=== PATIENT | male | born 1930 | race Caucasian/White ===

== ENCOUNTER → 2016-03-09 | Outpatient (CLI) | payer OTHER ==
[~2016-03-09] MED LIST: ACET-1256 PO; ALENDRONATE PO; AMLO-114 PO; ASPEC81 PO; ASPI81TA28 PO; ATOR-24 PO; CALC12502 PO; CHOL1CAP51 PO; FLUT0.15 NAE; FRS/40 PO; FURO-85 PO; LISI40TA PO; LNX125 PO; LPR25 PO; LSN5 PO; LSX20 PO; METO25TA3 PO; MULT-513 PO; RIVAROXABAN PO; SPR25 PO; TPRSR25 PO; WARF6TAB5 PO; XRL15 PO; [UNRECOGNIZED DRUG - CODE]
[2016-03-09 12:28] LABS: HEMATOCRIT 45.2 % (42-52); MEAN CELL VOLUME 90.6 fL (80-100); MEAN CORPUSCULAR HEMOGLOBIN 30.9 pg (25-34); MEAN CORPUSCULAR HGB CONC 34.1 g/dl (32-36); MEAN PLATELET VOLUME 11.3 fL (7.4-10.4); PLATELET COUNT 187 K/uL (130-400); RED BLOOD COUNT 4.99 M/uL (4.7-6.1); WHITE BLOOD COUNT 10.27 K/uL (4.8-10.8)
[2016-03-09 12:42] LABS: ALT/SGPT 30 U/L (12-78); BLOOD UREA NITROGEN 17 mg/dl (7-18); BUN/CREATININE RATIO 15.5 (10-20); CARBON DIOXIDE 26 mmol/L (21-32); CHLORIDE 110 mmol/L (98-107); CHOLESTEROL 178 mg/dl (0-200); GLUCOSE 80 mg/dl (70-99); POTASSIUM 4.1 mmol/L (3.5-5.1); SODIUM 145 mmol/L (136-145); TRIGLYCERIDES 202 mg/dl (0-150); VERY LOW DENSITY LIPOPROT CALC 40 mg/dl
[2016-03-09 12:52] LABS: ALKALINE PHOSPHATASE 88 U/L (45-117); AST/SGOT 28 U/L (15-37); CHOLESTEROL/HDL RATIO 5.6; HDL CHOLESTEROL 32 mg/dl; LDL CHOLESTEROL CALCULATED 106 mg/dl
== END | disposition home or self-care (01) ==
LOC: C.LABBFT 09:36
PROVIDERS: ATTEND Internal Medicine
DX: I10 Essential (primary) hypertension (principal); E55.9 Vitamin D deficiency, unspecified

== ENCOUNTER → 2016-03-11 | Outpatient (CLI) | payer OTHER ==
--- NOTE | 2016-03-11 12:12 | DIAGNOSTIC IMAGING REPORT ---
CHEST 2 VIEWS ROUTINE CLINICAL HISTORY: Cough, vitamin D deficiency. COMPARISON STUDY: No previous studies for comparison. FINDINGS: The heart is borderline enlarged. There is no failure. There is no focal pulmonary consolidation. There are no pleural effusions.[ IMPRESSION: No active disease in the chest. Electronically signed by: Yovany Mathews M.D. 03/11/2016 12:11 PM Dictated Date/Time: 03/11/2016 12:10 PM
== END | disposition home or self-care (01) ==
LOC: C.RAD1850 11:55
PROVIDERS: ATTEND Internal Medicine
DX: E55.9 Vitamin D deficiency, unspecified (principal); R05 Cough

== ENCOUNTER 2016-06-22 17:18 | Inpatient (IN) | payer OTHER ==
[~2016-06-22] VITALS: Ht 167.6 cm; Wt 71.0 kg
[~2016-06-22 17:18] MED LIST changes: -ACET-1256 PO; -ASPEC81 PO; -ASPI81TA28 PO; -ATOR-24 PO; -FLUT0.15 NAE; -FRS/40 PO; -FURO-85 PO; -LNX125 PO; -LPR25 PO; -LSN5 PO; -LSX20 PO; -METO25TA3 PO; -MULT-513 PO; -RIVAROXABAN PO; -SPR25 PO; -TPRSR25 PO; -WARF6TAB5 PO; -XRL15 PO; -[UNRECOGNIZED DRUG - CODE]
[2016-06-22 18:08] LABS: BASO % 0.3 %; BASO ABS # 0.03 K/uL (0-0.2); COMPLETE YES; EOS % 1.5 %; HEMATOCRIT 38.2 % (42-52); IG% 0.3 %; LYMPH % 27.6 %; LYMPH ABS # 2.72 K/uL (1.2-3.4); MEAN CELL VOLUME 91.4 fL (80-100); MEAN CORPUSCULAR HEMOGLOBIN 31.1 pg (25-34); MEAN PLATELET VOLUME 10.6 fL (7.4-10.4); NEUT % 60.3 %; PLATELET COUNT 171 K/uL (130-400); RED BLOOD COUNT 4.18 M/uL (4.7-6.1); WHITE BLOOD COUNT 9.86 K/uL (4.8-10.8)
[2016-06-22 18:22] LABS: BUN/CREATININE RATIO 26.8 (10-20); CALCIUM 8.3 mg/dl (8.5-10.1); CREATININE 1.6 mg/dl (0.60-1.40); POTASSIUM 4.3 mmol/L (3.5-5.1)
--- NOTE | 2016-06-22 18:39 | DIAGNOSTIC IMAGING REPORT ---
TWO VIEW CHEST CLINICAL HISTORY: Cough. Lower extremity edema. FINDINGS: PA and lateral chest radiographs are compared to study dated 03/11/16. The heart is enlarged and there is atherosclerotic calcification of the thoracic aorta. The pulmonary vasculature is noncongested. There are small pleural effusions with bibasilar atelectasis. The upper lobes are clear. There is no pneumothorax. The skeletal structures are osteopenic. Degenerative change is noted in the thoracic spine and shoulders. IMPRESSION: 1. Cardiomegaly without radiographic evidence of congestive failure. 2. Small pleural effusions and bibasilar atelectasis. Electronically signed by: Oh Mcdonald M.D. 06/22/2016 6:37 PM Dictated Date/Time: 06/22/2016 6:36 PM
[2016-06-22 18:47] LABS: ALB/GLOB RATIO 0.7 (0.9-2); CKMB/CK RATIO 3.9 (0-3.0); THYROID STIMULATING HORMONE 1.88 uIu/ml (0.300-4.500)
--- NOTE | 2016-06-22 19:33 | EMERGENCY ROOM VISIT NOTE ---
History Report prepared by Kajal: Celeste Bentley Under the Supervision of: Dr. Harmony Fry D.O. First contact with patient: 17:41 Chief Complaint: HYPOTENSION Stated Complaint: SWELLING FEET, LOW BP History of Present Illness The patient is a 85 year old male who presents to the Emergency Room with complaints of persistent hypotension that started a couple months ago. The patient's states that she took the patient's blood pressure today and it was really low, [facility]. He is also experiencing a persistent cough, which the patient's states he has had since the beginning of the year. She states that the coughing is worse at night and it was significantly worse last night. The patient's also states that the patient has less energy than usual. He is also experiencing bilateral lower extremity edema. The patient's states that the patient was evaluated by his PCP about one month ago for his current symptoms. His PCP recommended lowering the dose of his Lisinopril since it could cause the patient's cough and edema, but he did not change the patient's dose. The patient's PCP gave the patient allergy medication which seemed to improve the patient's cough, but his cough came back after a couple weeks. The patient's symptoms continued so [facility] they [facility] his Lisinopril from 40 mg to 20 mg. They also started him on 20 mg of Lasix. The patient's edema persisted so his called the [facility] and they recommended raising the patient's Lasix from 20 mg to 40 mg. His edema still has not resolved. The patient also had an echocardiogram done about 3 weeks ago , but they state that they were never given the results. She also expresses concern that the patient's symptoms are a result of overexertion since they started after strenuous activity several months ago. The patient's states that the patient does not have any history of an irregular heartbeat. Source of History: patient, spouse/significant other () Onset: a couple months ago Position: other (global) Quality: other (hypotension) Timing: other (persistent) Associated Symptoms: + cough (persistent, worse at night) Note: less energy than usual, bilateral lower extremity edema Review of Systems See HPI for pertinent positives & negatives. A total of 10 systems reviewed and were otherwise negative. Past Medical & Surgical Medical Problems: (1) Diabetes (2) Kidney stones Family History Diabetes mellitus Hypertension Kidney disease Kidney stones Social History Smoking Status: Former Smoker Smokeless Tobacco Use: No Alcohol Use: none Drug Use: none Marital Status: Housing Status: lives with family Current/Historical Medications Scheduled Amlodipine (Norvasc), 10 MG PO QAM Calcium Carbonate (Os-Ajith 500), 500 MG PO DAILY Cholecalciferol (Vitamin D3 High Potency), 2 CAPSULES PO DAILY Lisinopril (Zestril), 40 MG PO QAM [Alendronate], 70 MG PO WK Allergies Coded Allergies: No Known Allergies (Unverified , 05/18/12) Physical Exam Vital Signs Date Time Temp Pulse Resp B/P Pulse Ox O2 Delivery O2 Flow Rate FiO2 06/22/16 18:56 94 Nasal Cannula 2.0 06/22/16 18:54 78 20 102/48 88 Room Air 06/22/16 18:19 77 06/22/16 17:23 37.0 83 20 97/59 94 Room Air Physical Exam HEENT: Head - normocephalic and atraumatic Pupils are equal, round, and reactive to light. Extraocular eye muscles are intact, and sclera are anicteric. Nose - moist nasal mucosa without discharge. Mouth - moist buccal mucosa. Oropharynx is nonerythematous and there is no tonsillar exudate or edema noted. Neck: Supple; no JVD, nuchal rigidity, cervical lymphadenopathy, or auscultated bruits. Heart: Irregularly irregular rhythm. There is a normal S1 and S2 with no murmurs, clicks, or gallops appreciated. Lungs: Diminished breath sounds in all lung martinez. Abdomen: Soft, completely nontender, nondistended, with good bowel sounds. There are no palpable pulsatile masses or hepatosplenomegaly. There is no guarding, rigidity, or rebound noted. Extremities: 2+ edema in legs bilaterally. No evidence of cyanosis or clubbing. There are easily palpable peripheral pulses. Skin: warm and dry with good turgor and no rashes. Medical Decision & Procedures ER Provider Diagnostic Interpretation: X-ray results as stated below per interpretation by me and the radiologist: TWO VIEW CHEST IMPRESSION: 1. Cardiomegaly without radiographic evidence of congestive failure. 2. Small pleural effusions and bibasilar atelectasis. Electronically signed by: Oh Mcdonald M.D. 06/22/2016 6:37 PM Dictated Date/Time: 06/22/2016 6:36 PM Laboratory Results Test 06/22/16 17:41 Total Bilirubin 0.6 mg/dl (0.2-1) Aspartate Amino Transf (AST/SGOT) 35 U/L (15-37) Alanine Aminotransferase (ALT/SGPT) 47 U/L (12-78) Alkaline Phosphatase 96 U/L (45-117) Pro-B-Type Natriuretic Peptide 8677 pg/ml (0-1800) Total Protein 6.7 gm/dl (6.4-8.2) Albumin 2.8 gm/dl (3.4-5.0) Globulin 3.9 gm/dl (2.5-4.0) Albumin/Globulin Ratio 0.7 (0.9-2) Thyroid Stimulating Hormone (TSH) 1.880 uIu/ml (0.300-4.500) Laboratory results per my review. Medications Administered Medications (Trade) Dose Ordered Sig/Erica Route Start Time Stop Time Status Last Admin Dose Admin Heparin Sodium/ Dextrose 1 ea NOW STAT N/A 06/22/16 19:20 06/22/16 19:21 DC 06/22/16 19:20 1 EA Heparin Sodium/ Dextrose (Heparin 25,000 Unit/500ml D5W) 25,000 unit STK-MED ONCE .ROUTE 06/22/16 19:52 06/22/16 19:53 DC 06/22/16 20:07 25,000 UNIT Procedure IV heparin drip ECG Indication: other (irregular heartbeat) Rate (beats per minute): 80 Rhythm: atrial fibrillation Findings: no acute ischemic change, no ectopy Comparison ECG Date: 05/11/2012 Change: Atrial fibrillation has replaced normal sinus rhythm, old inferior infarct is not present ED Course 1744: Past medical records reviewed. The patient was evaluated in room C12. A complete history and physical exam was performed. The patient had an IV lock initiated and labs are drones above. A twelve-lead EKG was obtained as described above. 1756: The patient's echocardiogram from 06/08/2016 was obtained. The results of the echocardiogram were: normal left ventricular size with mildly reduced systolic function, EF 40-50%, mild global hypokinesis, moderate concentric left ventricular hypertrophy, type 2 diastolic dysfunction, normal right ventricular size with mildly reduced systolic function, sclerotic aortic valve without significant stenosis, mild aortic regurgitation, mildly elevated right ventricular systolic pressure estimated RVSP 43 mmHg, and no prior study available for comparison. The patient had a chest x-ray as described above. 1914: Upon reevaluation, the patient is resting comfortably. I discussed findings and results with the patient and his . They verbalized agreement of the treatment plan. The patient will be evaluated for further management and care. 1917: Discussed the patient's case with Dr. Rosette Tsang Resident. The patient will be evaluated for further management. Medical Decision The patient is a 85 year old male who presents to the Emergency Room with complaints of persistent hypotension that started a couple months ago. Differential diagnosis includes veena inhibitor induced cough, hypotension secondary to overmedication, congestive heart failure, allergies, cardiac ischemia, cardiac dysrhythmia, or pneumonia. Lab Interpretation: Normal white count Mildly anemic with a hemoglobin of 13 BUN 43 Creatinine 1.6 Normal glucose and LFTs Troponin 0.050 Normal TSH BNP 8.677 This is an 85-year-old male patient who was brought to the emergency department today by his family because he was weak and hypotensive. The patient has persistent lower extremity edema. He was noted to be in A. fib on physical exam. Twelve-lead EKG confirmed that. Chest x-ray had small bilateral pleural effusions. The patient's troponin was elevated. He also has some mild acute kidney injury. Patient's vital signs remained stable and he was able to mentate normally. I discussed the case with Dr. Miguel he will violate the patient for further management. Consults Time Called: 1912 Consulting Physician: Dr. Rosette Tsang Resident Returned Call: 1917 Discussed the patient's case with Dr. Rosette Tsang Resident. The patient will be evaluated for further management. Impression Primary Impression: New onset atrial fibrillation Additional Impressions: Acute kidney injury Elevated troponin Scribe Attestation The scribe's documentation has been prepared under my direction and personally reviewed by me in its entirety. I confirm that the note above accurately reflects all work, treatment, procedures, and medical decision making performed by me. Departure Information Dispostion Being Evaluated By Hospitalist Referrals Lexus, Marcus,M.D. (PCP) Patient Instructions [facility] Problem Qualifiers
[2016-06-22] MEDS ORDERED: HEPARIN 25000 UNIT/500 ML D5W ONE (19:52)
[2016-06-22 20:00] VITALS: O2SAT 92
[2016-06-22] MEDS ORDERED: NITROGLYCERIN 0.4 MG SL PER TAB CHARGE SL PRN (20:00)
[2016-06-22] MEDS ORDERED: ACETAMINOPHEN 325 MG TAB PO PRN (20:00)
[2016-06-22 20:14] LABS: INR 1.1 (0.9-1.1); PROTHROMBIN TIME (PATIENT) 11.8 SECONDS (9.0-12.0)
[2016-06-22] MEDS ORDERED: ONDANSETRON INJ 2 MG/ML 2 ML VIAL IV PRN (20:15)
[2016-06-22 21:15] VITALS: BP 123/58; PULSE 84; TEMP 36.9; O2SAT 92; Ht 167.6 cm; Wt 71.0 kg
--- NOTE | 2016-06-22 23:38 | History and Physical ---
History & Physical Date & Time of Service: June 22, 2016 at 23:38 Chief Complaint: Elevated Troponin, New Onset Atrial Fibrillation Primary Care Physician: Marcus Alberts M.D. History of Present Illness Source: patient, spouse The patient is a 85-year-old male who presents emergency department with lower extremity edema since February, progressive fatigue and a measured low blood pressure earlier in the day prior to arrival. He has also had a persistent cough, that his PCP thought was related to his lisinopril, and he also reports that his lower extremity edema was thought related to one of his medications ( likely amlodipine), and was put on increasing doses of Lasix from 20-40 mg. He did have an echocardiogram done 3 weeks ago at [facility], but they had not gotten the results yet. His does report that she's had take over more of his duties around the house, as he is unable to do a number of physical activities due to generalized weakness. He denies chest pain, but does have intermittent dyspnea on exertion. Past Medical/Surgical History Medical Problems: (1) Diabetes Status: Chronic (2) Kidney stones Status: Resolved Family History Diabetes mellitus Hypertension Kidney disease Kidney stones Social History Smoking Status: Never Smoker Smokeless Tobacco Use: No Alcohol Use: none Drug Use: none Marital Status: Housing status: lives with family Immunizations History of Influenza Vaccine: N/A History of Tetanus Vaccine?: Unknown History of Pneumococcal: Unknown History of Hepatitis B Vaccine: Unknown Multi-Drug Resistant Organisms History of MDRO: No Allergies Coded Allergies: No Known Allergies (Unverified , 05/18/12) Home Medications Scheduled Amlodipine (Norvasc), 10 MG PO QAM Calcium Carbonate (Os-Ajith 500), 500 MG PO DAILY Cholecalciferol (Vitamin D3 High Potency), 2 CAPSULES PO DAILY Lisinopril (Zestril), 40 MG PO QAM [Alendronate], 70 MG PO WK Review of Systems The patient denies chest pain, palpitations, vision change, hearing change, sore throat, fevers, chills, sweats, nausea, vomiting, abdominal pain, pelvic pain, blood in urine or stool, dysuria, urinary frequency or urgency, lightheadedness, dizziness, headache, memory loss, rash, abnormal bruising or bleeding, imbalance, focal weakness, numbness or tingling in arms or legs, arthralgias or myalgias, back or neck pain, night sweats, or allergy symptoms. The review of systems is otherwise negative other than for that already noted above, and at least 10 systems have been reviewed. Physical Exam Vital Signs Date Time Temp Pulse Resp B/P Pulse Ox O2 Delivery O2 Flow Rate FiO2 06/22/16 21:15 36.9 84 18 123/58 92 Nasal Cannula 2.0 06/22/16 20:37 77 18 110/62 92 Nasal Cannula 2.0 06/22/16 20:00 92 Nasal Cannula 2.0 06/22/16 18:56 94 Nasal Cannula 2.0 06/22/16 18:54 78 20 102/48 88 Room Air 06/22/16 18:19 77 06/22/16 17:23 37.0 83 20 97/59 94 Room Air The patient is awake, well-developed and adequately nourished, alert and oriented 3, normocephalic and atraumatic, lying in bed and in no acute distress. HEENT--PERRL, EOMI, mucous membranes and oropharynx dry. Neck--supple, no JVD or bruits, thyroid normal, trachea midline, no adenopathy. Heart--irregularly irregular, with occasional extra beats. No murmurs, rubs or gallops. Lungs--few crackles at the bases bilaterally, no respiratory distress, no accessory muscle use. Abdomen--normal bowel sounds and soft, nontender and nondistended, no hernias or masses, no organomegaly. Extremities--no cyanosis, clubbing. There is 3+ pretibial bilateral pitting Edema. There are good distal pulses b/l. Dermatologic--normal skin turgor, normal color, warm and dry, no abnormal lymph nodes, no rash. Neurologic--cranial nerves II through XII grossly intact, motor and sensory examination normal. Rheumatologic--normal range of motion, nontender, muscles and joints. Psychiatric--normal affect. Diagnostics Laboratory Results Results Past 24 Hours Test 06/22/16 17:41 06/22/16 20:15 Range/Units White Blood Count 9.86 4.8-10.8 K/uL Red Blood Count 4.18 4.7-6.1 M/uL Hemoglobin 13.0 14.0-18.0 g/dL Hematocrit 38.2 42-52 % Mean Corpuscular Volume 91.4 80-100 fL Mean Corpuscular Hemoglobin 31.1 25-34 pg Mean Corpuscular Hemoglobin Concent 34.0 32-36 g/dl Platelet Count 171 130-400 K/uL Mean Platelet Volume 10.6 7.4-10.4 fL Neutrophils (%) (Auto) 60.3 % Lymphocytes (%) (Auto) 27.6 % Monocytes (%) (Auto) 10.0 % Eosinophils (%) (Auto) 1.5 % Basophils (%) (Auto) 0.3 % Neutrophils # (Auto) 5.94 1.4-6.5 K/uL Lymphocytes # (Auto) 2.72 1.2-3.4 K/uL Monocytes # (Auto) 0.99 0.11-0.59 K/uL Eosinophils # (Auto) 0.15 0-0.5 K/uL Basophils # (Auto) 0.03 0-0.2 K/uL RDW Standard Deviation 44.9 36.4-46.3 fL RDW Coefficient of Variation 13.6 11.5-14.5 % Immature Granulocyte % (Auto) 0.3 % Immature Granulocyte # (Auto) 0.03 0.00-0.02 K/uL Prothrombin Time 11.8 9.0-12.0 SECONDS Prothromb Time International Ratio 1.1 0.9-1.1 Activated Partial Thromboplast Time 25.9 21.0-31.0 SECONDS Partial Thromboplastin Ratio 1.0 Sodium Level 139 136-145 mmol/L Potassium Level 4.3 3.5-5.1 mmol/L Chloride Level 106 98-107 mmol/L Carbon Dioxide Level 25 21-32 mmol/L Anion Gap 8.0 3-11 mmol/L Blood Urea Nitrogen 43 7-18 mg/dl Creatinine 1.60 0.60-1.40 mg/dl Est Creatinine Clear Calc Drug Dose 30.4 ml/min Estimated GFR () 44.9 Estimated GFR (Non- 38.7 BUN/Creatinine Ratio 26.8 10-20 Random Glucose 117 70-99 mg/dl Calcium Level 8.3 8.5-10.1 mg/dl Total Bilirubin 0.6 0.2-1 mg/dl Aspartate Amino Transf (AST/SGOT) 35 15-37 U/L Alanine Aminotransferase (ALT/SGPT) 47 12-78 U/L Alkaline Phosphatase 96 45-117 U/L Total Creatine Kinase 106 91 39-308 U/L Creatine Kinase MB 4.1 3.6 0.5-3.6 ng/ml Creatine Kinase MB Ratio 3.9 4.0 0-3.0 Troponin I 0.050 0.050 0-0.045 ng/ml Pro-B-Type Natriuretic Peptide 8677 0-1800 pg/ml Total Protein 6.7 6.4-8.2 gm/dl Albumin 2.8 3.4-5.0 gm/dl Globulin 3.9 2.5-4.0 gm/dl Albumin/Globulin Ratio 0.7 0.9-2 Thyroid Stimulating Hormone (TSH) 1.880 0.300-4.500 uIu/ml Diagnostic Radiology Patient Name: AJIT BERMAN Unit Number: [id number] Dictated: 06/22/161835 Transcribed: 06/22/161835 EV Printed Date/Time: [~ rep prt dt]/[~ rep prt tm] [~ rep ct labl] - [~ rep ct ivnm] [facility] [place] [address] Dictated: 06/22/161835 Transcribed: 06/22/161835 EV Printed Date/Time: [~ rep prt dt]/[~ rep prt tm] [~ rep ct labl] - [~ rep ct ivnm] [~ rep ct add3]] TWO VIEW CHEST CLINICAL HISTORY: Cough. Lower extremity edema. FINDINGS: PA and lateral chest radiographs are compared to study dated 03/11/16. The heart is enlarged and there is atherosclerotic calcification of the thoracic aorta. The pulmonary vasculature is noncongested. There are small pleural effusions with bibasilar atelectasis. The upper lobes are clear. There is no pneumothorax. The skeletal structures are osteopenic. Degenerative change is noted in the thoracic spine and shoulders. IMPRESSION: 1. Cardiomegaly without radiographic evidence of congestive failure. 2. Small pleural effusions and bibasilar atelectasis. Electronically signed by: Oh Mcdonald M.D. 06/22/2016 6:37 PM Dictated Date/Time: 06/22/2016 6:36 PM The status of this report is Signed. Draft = Not yet reviewed or approved by Radiologist. Signed = Reviewed and approved by Radiologist. <AttendingPhy></AttendingPhy> <FamilyPhy>Marcus Alberts M.D.</FamilyPhy> < PrimaryPhy>Marcus Alberts M.D.</PrimaryPhy> <UnitNumber>[id number]</UnitNumber > <VisitNumber>[id number]</VisitNumber> <PatientName>AJIT BERMAN N</ PatientName> <DateOfBirth>1930</DateOfBirth> <Location>[facility]</Location> < ServiceDate>06/22/16</ServiceDate> <MNE>ESINDI</MNE> <OrderingPhy>Harmony Fry D.O.</OrderingPhy> <OrderingPhyMNE>f rep ord dr ames</OrderingPhyMNE> < DictatingPhyMNE>f rep dict dr ames</DictatingPhyMNE> <CCListMNE>f rep ct mne</ CCListMNE> <AdmittingPhyMNE>f pt admit dr ames</AdmittingPhyMNE> <AttendingPhyMNE >f pt attend dr ames</AttendingPhyMNE> <ConsultingPhyMNE>f pt consult dr ames</ConsultingPhyMNE> <FamilyPhyMNE>f pt fam dr ames</FamilyPhyMNE> <OtherPhyMNE>f pt other dr ames</OtherPhyMNE> < PrimaryPhyMNE>f pt prim care dr ames</PrimaryPhyMNE> <ReferringPhyMNE>f pt referring dr ames</ReferringPhyMNE> EKG EKG shows atrial fibrillation at 80 bpm, in no acute ST-T changes. Impression Assessment and Plan New-onset atrial fibrillation/elevated troponin/fluid overload/systolic heart dysfunction/mildly elevated troponin was 0.050--the patient will be admitted to the telemetry for serial cardiac enzymes, cardiac rhythm monitoring, and a cardiology consult. His echocardiogram done from 3 weeks ago shows ejection fraction 45-50%, with mild aortic regurgitation. He is being started on heparin IV standard dose per weight-based protocol without bolus. His blood pressures is too low at this time to give IV Lasix, but may be able to give albumin with Lasix later on. Will hold amlodipine 10 mg by mouth every morning , this is likely contributing to or is the cause of significant lower extremity edema. Continue lisinopril 40 mg by mouth every morning. Renal insufficiency--creatinine and his 1.60. We'll decrease lisinopril from 40 -20 mg by mouth daily. Repeat BMP and magnesium levels in the a.m. Anemia--unknown etiology at this time. We'll check iron, B12 , folic acid, reticulocyte count. Heme test stools. Osteoporosis--he is on alendronate weekly in the outpatient setting. We'll continue calcium and vitamin D as inpatient. Level of Care Telemetry Advanced Directives Existing Advance Directive: No Existing Living Will: No Existing Power of Ship/Rec/Doc Control: No Resuscitation Status FULL RESUSCITATION VTE Prophylaxis VTE Risk Assessment Done? Y/N: Yes Risk Level: Moderate Given or contraindicated: Other Anticoagulation (IV heparin per standard dose weightbase protocol without bolus.)
[2016-06-22 23:51] LABS: URINE APPEARANCE CLEAR (CLEAR); URINE BILIRUBIN NEG (NEG); URINE COLOR YELLOW; URINE NITRITE NEG (NEG); URINE SPECIFIC GRAVITY 1.019 (1.000-1.030); UROBILINOGEN NEG (NEG)
[2016-06-22 23:54] LABS: MANUAL MICROSCOPIC REQUIRED? NO; REVIEW REQ? NO
[2016-06-22 23:56] VITALS: BP 106/58; PULSE 80; TEMP 36.9; O2SAT 94
[2016-06-23 02:17] LABS: PARTIAL THROMBOPLASTIN RATIO 1.4
[2016-06-23] MEDS ORDERED: HEPARIN IV BOLUS 5,000 UNIT in SYRINGE 0 ML IV STA (02:32)
[2016-06-23] MEDS: HEPARIN 25,000 UNIT/500ML D5W 500 ML IV PRN ×2 (02:41→14:11)
[2016-06-23 03:51] VITALS: BP 102/58; PULSE 76; TEMP 36.8; O2SAT 93
[2016-06-23 04:37] LABS: BASO % 0.5 %; BASO ABS # 0.04 K/uL (0-0.2); COMPLETE YES; EOS % 2.4 %; HEMATOCRIT 37.3 % (42-52); IG% 0.2 %; LYMPH % 27.1 %; MEAN CELL VOLUME 91.6 fL (80-100); MEAN CORPUSCULAR HEMOGLOBIN 30.2 pg (25-34); MEAN PLATELET VOLUME 10.7 fL (7.4-10.4); MONO % 11.3 %; NEUT % 58.5 %; PLATELET COUNT 154 K/uL (130-400); RED BLOOD COUNT 4.07 M/uL (4.7-6.1); WHITE BLOOD COUNT 8.85 K/uL (4.8-10.8)
[2016-06-23 04:57] LABS: BUN/CREATININE RATIO 27.9 (10-20); CALCIUM 7.9 mg/dl (8.5-10.1); CREATININE 1.3 mg/dl (0.60-1.40); MAGNESIUM 2.3 mg/dl (1.8-2.4); POTASSIUM 4.1 mmol/L (3.5-5.1)
[2016-06-23 05:01] LABS: INR 1.1 (0.9-1.1); PARTIAL THROMBOPLASTIN RATIO 3.7; PROTHROMBIN TIME (PATIENT) 12.2 SECONDS (9.0-12.0)
[2016-06-23 05:07] LABS: CKMB/CK RATIO 4.4 (0-3.0)
[2016-06-23 07:48] VITALS: BP 104/53; PULSE 71; TEMP 36.7; O2SAT 94
[2016-06-23] MEDS: CHOLECALCIFEROL 1000 INTER.UNIT TAB PO SCH (08:21)
[2016-06-23] MEDS: LISINOPRIL 5 MG TAB PO SCH (08:22)
[2016-06-23] MEDS ORDERED: LISINOPRIL 20 MG TAB PO SCH (09:00)
[2016-06-23] MEDS ORDERED: LISINOPRIL 40 MG TAB PO SCH (09:00)
[2016-06-23 09:12] LABS: PARTIAL THROMBOPLASTIN RATIO 2.2
[2016-06-23] MEDS ORDERED: FUROSEMIDE INJ 60 MG in SYRINGE 0 ML IV ONE (10:00)
[2016-06-23] MEDS ORDERED: METOPROLOL SUCC 25MG EXT REL TAB PO ONE (10:00)
[2016-06-23] MEDS ORDERED: ASPIRIN 81 MG ECTAB PO ONE (10:00)
--- NOTE | 2016-06-23 10:12 | Clinical Documentation Query ---
DENIZ Bethea : CLINICAL DOCUMENTATION QUERIES QUERY 1 OF 2 Patient is an 85 year old male admitted for evaluation and treatment of new onset atrial fibrillation, "fluid overload", and "renal insufficiency". H&P notes systolic heart dysfunction, noting an LVEF of 45-50% on recent echo. Type 2 diastolic dysfunction noted. Cardiology consultation pending. He has been treated with IV Lasix, Toprol XL, and Lisinopril. As appropriate, consider clarification as suggested below as this impacts DRG assignment. Thank you. In your clinical opinion is this patient being managed for: (xx ) Acute combined systolic and diastolic congestive heart failure ( ) Other explanation of clinical findings (Please Explain) ( ) Unable to determine (Please Define) ( ) Need to Discuss ( ) Not Agree The medical record reflects the following clinical findings, treatment, and risk factors. Clinical Indicators: As above Treatment: serial cardiac enzymes, cardiac rhythm monitoring, and a cardiology consult, telemetry, I/O, daily weights Risk Factors: Age, atrial fibrillation, hypertension QUERY 2 OF 2 Documentation includes "renal insufficiency". This necessarily assigns a code for an "unspecified disorder of the kidney and/or ureter". As appropriate, consider documentation as suggested below in order to capture the severity of illness and risk of mortality associated with this clinical diagnosis. Thank you. In your clinical opinion is this patient being managed for: ( xx ) Acute kidney failure ( ) Other explanation of clinical findings (Please Explain) ( ) Unable to determine (Please Define) ( ) Need to Discuss ( ) Not Agree The medical record reflects the following clinical findings, treatment, and risk factors. Clinical Indicators: BUN and creatinine 43 mg/dl and 1.60 mg/dl. No documented CKD history Treatment: Decreased Lisinopril, serial chemistries Risk Factors: Age, possibly acute on chronic combined systolic and diastolic CHF, medications Please clarify and document your clinical opinion in the progress notes and discharge summary. Terms such as "probable", "suspected", "likely", "questionable", "possible", or "still to be ruled out" are acceptable. IF IN AGREEMENT, YOU MUST DOCUMENT ABOVE DIAGNOSTIC STATEMENT IN DAILY PROGRESS NOTES AND DISCHARGE SUMMARY. This document is not part of the patient's record. Thank You, Edvin Dale, RN [phone]
[2016-06-23 11:43] VITALS: BP 110/50; PULSE 79; TEMP 36.8; O2SAT 96
--- NOTE | 2016-06-23 12:58 | CARDIOLOGY CONSULTATION REPORT ---
DATE OF CONSULTATION: 06/23/2016 REASON FOR CONSULTATION: 1. New onset rate controlled Atrial Fibrillation. 2. Chronic Combined Systolic and Diastolic CHF. 3. Elevated Troponin I without a history of angina pectoris. HISTORY OF PRESENT ILLNESS: Mr. Aburto is a very pleasant 85-year-old white male with a history of longstanding Hypertension, CKD, Nephrolithiasis, history of Hyperparathyroidism, and Type 2 Diabetes Mellitus, who was admitted yesterday with newly diagnosed rate controlled Atrial Fibrillation and progressive dyspnea, dyspnea on exertion, and leg edema over the past 5-6 months. The patient states that around the beginning of the year, he began to note bilateral leg edema. This progressed over the ensuing months and he also developed exertional dyspnea, shortness of breath at rest, orthopnea, PND, and poor appetite. Because of these ongoing symptoms, he presented to the emergency room yesterday. Thus far, his workup shows rate controlled atrial fibrillation with ventricular rates in the 70s, small bilateral pleural effusions, elevated Pro-BNP, and mildly elevated troponin I level with unremarkable CK and CK-MB levels. His EKG shows no acute changes. Because of these symptoms, the patient underwent an echocardiogram on 06/08/2016. This showed normal LV size and mildly reduced LV systolic function, LVEF 45%-50% with mild global hypokinesis, moderate concentric LVH with type 2 diastolic dysfunction, normal RV size with mildly reduced RV systolic function, aortic valve sclerosis/stenosis, mild AI, and mildly elevated right ventricular systolic pressure of 43 mmHg. The patient offers no other complaints. He denies any history of exertional chest pain, heaviness, tightness, pressure, or discomfort. He denies any history of exertional neck, jaw, back, or arm pain. He has not had any palpitations, tachy palpitations, syncope, or near syncope. MEDICATIONS: 1. Lisinopril 5 mg daily. 2. Heparin drip. 3. Zofran 4 mg IV q. 6 hours p.r.n. 4. Tylenol p.r.n. 5. Sublingual nitroglycerin p.r.n. ALLERGIES: NKDA. PAST MEDICAL HISTORY: 1. Longstanding hypertension. 2. CKD. 3. History of nephrolithiasis and prior lithotripsy. 4. History of hyperparathyroidism. 5. History of osteoporosis. 6. History of parathyroidectomy. 7. History of leg edema. SOCIAL HISTORY: The patient is and lives with his . He is a lifelong nonsmoker. Does not use alcohol. Retired from work. FAMILY HISTORY: Significant for goiter, but there is no family history of heart disease. PHYSICAL EXAMINATION: VITAL SIGNS: Temperature is 36.7 degrees Celsius, pulse is 70-73 and irregularly irregular, respiratory rate is 16 and unlabored, blood pressure is 104/53 and SpO2 is 94% on 2 liters oxygen via nasal cannula. GENERAL: The patient is in no acute distress. He is lying in a semi-recumbent position comfortably. HEENT: Head is atraumatic and normocephalic. EOMs intact. Sclerae are anicteric. Face is symmetric. No perioral cyanosis. Mucous membranes moist. NECK: Without thyromegaly or adenopathy. Jugular venous pressure is elevated, approximately half way to the angle of the jaw, lying at a 20-degree angle. CHEST AND LUNGS: Mildly diminished breath sounds in bilateral bases, otherwise clear. No wheezes, rales or rhonchi. CARDIOVASCULAR: S1 and S2 are irregularly irregular at a rate of approximately 70-73 beats per minute. There is a grade 1/6 basal systolic murmur, which does not appear to radiate. No diastolic murmurs appreciated. No gallops or rubs. PMI is not displaced. No lifts, heaves, or thrills. No abdominal aortic or renal bruits. ABDOMEN: Bowel sounds are present. No masses, organomegaly, or tenderness. EXTREMITIES: Without clubbing or cyanosis. There is +1 pitting edema to the mid tibia bilaterally. Intact posterior tibial and radial pulses bilaterally. NEUROLOGIC: The patient is awake, alert and oriented. Pleasant and cooperative. Answers questions appropriately. Speech is clear. Normal movement in all 4 extremities. Gait pattern not assessed. Current monitoring analyst reveals rate controlled atrial fibrillation. Echocardiogram on 06/08/2016 shows the followin. LVEF 45%-50% with mild global hypokinesis. 2. Normal LV size with mildly reduced LV systolic function. 3. Moderate concentric LVH with type 2 diastolic dysfunction. 4. Normal RV size with mildly reduced RV systolic function. 5. Aortic valve sclerosis/stenosis. 6. Mild AI. 7. Mildly elevated RVSP of 43 mmHg. LABORATORY DATA: White blood cell count is 8.85. Hemoglobin is 12.3 g/dL, hematocrit 37.3%, and platelet count is 154,000. Sodium is 141 mmol/L, potassium 4.1 mmol/L, BUN 36 mg/dL with a creatinine of 1.30 mg/dL. Random glucose is 107 mg/dL. Serum magnesium is 2.3 mg/dL. Pro-BNP is elevated at 8677 pg/mL. Troponin I levels are 0.052, 0.050, and 0.050 ng/mL. Total CKs are 86, 91, and 106 units per liter with respective CK-MBs of 3.8, 3.6, and 4.1 ng/mL. TSH normal at 1.880 uIUs/mL. ASSESSMENT: 1. Chronic combined Systolic and Diastolic CHF. 2. Mild Cardiomyopathy. 3. Newly diagnosed rate controlled Atrial Fibrillation (not likely to be contributing to his current symptomatology). 4. Elevated CHADS-VASc score. 5. Elevated troponin I, of uncertain clinical significance in the absence of angina pectoris or appropriate trending of numbers. 6. Longstanding Hypertension. 7. Type 2 Diabetes Mellitus. 8. Chronic kidney disease. 9. Diagnoses mentioned above. PLAN: 1. I will discuss with Dr. Dominguez. 2. As the patient's ventricular response rate is exceedingly well controlled, this is unlikely to be contributing a large role in his current symptomatology. Would recommend discharging to home on Eliquis or Xarelto for thromboembolic prophylaxis associated with atrial fibrillation. 3. He continues to appear volume overloaded. We will recommend IV Lasix 60 mg x1 dose today. 4. Continue Lisinopril 5 mg daily. 5. We will add Metoprolol Succinate at a low dose today. 6. Closely monitor daily I&Os and body weights. 7. Maintain a low-sodium, heart-healthy diet. 8. Continue heparin drip for the time being for thromboembolic prophylaxis. 9. We will continue to follow along while hospitalized. ESMED
[2016-06-23 13:14] LABS: CKMB/CK RATIO 4.9 (0-3.0)
[2016-06-23 15:09] VITALS: BP 100/55; PULSE 75; TEMP 36.7; O2SAT 91
--- NOTE | 2016-06-23 16:38 | Progress Note ---
Subjective Date of Service: June 23, 2016. Subjective pt states he feels better but still is short of breath, no chest pain Problem List Medical Problems: (1) Acute kidney injury Status: Acute (2) Diabetes Status: Chronic (3) Elevated troponin Status: Acute (4) New onset atrial fibrillation Status: Acute Review of Systems Constitutional: + fatigue, + weakness, No chills, No fever Respiratory: + dyspnea on exertion, + shortness of breath, No cough, No dyspnea at rest, No sputum, No wheezing Cardiac: + edema, + orthopnea, No PND, No chest pain Abdomen: No diarrhea, No nausea, No pain, No vomiting Musculoskeletal: + swelling, No joint pain, No muscle pain Neurologic: No memory loss, No paralysis Objective Vital Signs Date Time Temp Pulse Resp B/P Pulse Ox O2 Delivery O2 Flow Rate FiO2 06/23/16 04:04 Nasal Cannula 2.0 06/23/16 03:51 36.8 76 18 102/58 93 Nasal Cannula 2.0 06/22/16 23:59 Nasal Cannula 2.0 06/22/16 23:56 36.9 80 19 106/58 94 Nasal Cannula 2.0 06/22/16 21:15 36.9 84 18 123/58 92 Nasal Cannula 2.0 06/22/16 20:37 77 18 110/62 92 Nasal Cannula 2.0 06/22/16 20:00 92 Nasal Cannula 2.0 06/22/16 18:56 94 Nasal Cannula 2.0 06/22/16 18:54 78 20 102/48 88 Room Air 06/22/16 18:19 77 06/22/16 17:23 37.0 83 20 97/59 94 Room Air Physical Exam General Appearance: WD/WN, + mild distress Eyes: PERRL, EOMI Neck: supple, trachea midline, + JVD Respiratory/Chest: chest non-tender, + decreased breath sounds, + accessory muscle use, + rales Cardiovascular: regular rate, rhythm, + systolic murmur, + gallop/S3 Abdomen: normal bowel sounds, non tender, soft Extremities: normal capillary refill, + pedal edema, + swelling Neurologic/Psychiatric: alert, oriented x 3 Laboratory Results Last 24 Hours Test 06/22/16 17:41 06/22/16 20:15 06/22/16 23:39 06/23/16 01:55 White Blood Count 9.86 K/uL Red Blood Count 4.18 M/uL Hemoglobin 13.0 g/dL Hematocrit 38.2 % Mean Corpuscular Volume 91.4 fL Mean Corpuscular Hemoglobin 31.1 pg Mean Corpuscular Hemoglobin Concent 34.0 g/dl Platelet Count 171 K/uL Mean Platelet Volume 10.6 fL Neutrophils (%) (Auto) 60.3 % Lymphocytes (%) (Auto) 27.6 % Monocytes (%) (Auto) 10.0 % Eosinophils (%) (Auto) 1.5 % Basophils (%) (Auto) 0.3 % Neutrophils # (Auto) 5.94 K/uL Lymphocytes # (Auto) 2.72 K/uL Monocytes # (Auto) 0.99 K/uL Eosinophils # (Auto) 0.15 K/uL Basophils # (Auto) 0.03 K/uL RDW Standard Deviation 44.9 fL RDW Coefficient of Variation 13.6 % Immature Granulocyte % (Auto) 0.3 % Immature Granulocyte # (Auto) 0.03 K/uL Prothrombin Time 11.8 SECONDS Prothromb Time International Ratio 1.1 Activated Partial Thromboplast Time 25.9 SECONDS 36.9 SECONDS Partial Thromboplastin Ratio 1.0 1.4 Sodium Level 139 mmol/L Potassium Level 4.3 mmol/L Chloride Level 106 mmol/L Carbon Dioxide Level 25 mmol/L Anion Gap 8.0 mmol/L Blood Urea Nitrogen 43 mg/dl Creatinine 1.60 mg/dl Est Creatinine Clear Calc Drug Dose 30.4 ml/min Estimated GFR () 44.9 Estimated GFR (Non- 38.7 BUN/Creatinine Ratio 26.8 Random Glucose 117 mg/dl Calcium Level 8.3 mg/dl Total Bilirubin 0.6 mg/dl Aspartate Amino Transf (AST/SGOT) 35 U/L Alanine Aminotransferase (ALT/SGPT) 47 U/L Alkaline Phosphatase 96 U/L Total Creatine Kinase 106 U/L 91 U/L Creatine Kinase MB 4.1 ng/ml 3.6 ng/ml Creatine Kinase MB Ratio 3.9 4.0 Troponin I 0.050 ng/ml 0.050 ng/ml Pro-B-Type Natriuretic Peptide 8677 pg/ml Total Protein 6.7 gm/dl Albumin 2.8 gm/dl Globulin 3.9 gm/dl Albumin/Globulin Ratio 0.7 Thyroid Stimulating Hormone (TSH) 1.880 uIu/ml Urine Color YELLOW Urine Appearance CLEAR Urine pH 5.0 Urine Specific Hasty 1.019 Urine Protein NEG Urine Glucose (UA) NEG Urine Ketones NEG Urine Occult Blood NEG Urine Nitrite NEG Urine Bilirubin NEG Urine Urobilinogen NEG Urine Leukocyte Esterase NEG Test 06/23/16 04:20 White Blood Count 8.85 K/uL Red Blood Count 4.07 M/uL Hemoglobin 12.3 g/dL Hematocrit 37.3 % Mean Corpuscular Volume 91.6 fL Mean Corpuscular Hemoglobin 30.2 pg Mean Corpuscular Hemoglobin Concent 33.0 g/dl Platelet Count 154 K/uL Mean Platelet Volume 10.7 fL Neutrophils (%) (Auto) 58.5 % Lymphocytes (%) (Auto) 27.1 % Monocytes (%) (Auto) 11.3 % Eosinophils (%) (Auto) 2.4 % Basophils (%) (Auto) 0.5 % Neutrophils # (Auto) 5.18 K/uL Lymphocytes # (Auto) 2.40 K/uL Monocytes # (Auto) 1.00 K/uL Eosinophils # (Auto) 0.21 K/uL Basophils # (Auto) 0.04 K/uL RDW Standard Deviation 45.5 fL RDW Coefficient of Variation 13.6 % Immature Granulocyte % (Auto) 0.2 % Immature Granulocyte # (Auto) 0.02 K/uL Absolute Reticulocyte Count 0.05 10^6/uL Percent Reticulocyte Count 1.2 % Prothrombin Time 12.2 SECONDS Prothromb Time International Ratio 1.1 Activated Partial Thromboplast Time 95.9 SECONDS Partial Thromboplastin Ratio 3.7 Sodium Level 141 mmol/L Potassium Level 4.1 mmol/L Chloride Level 108 mmol/L Carbon Dioxide Level 26 mmol/L Anion Gap 7.0 mmol/L Blood Urea Nitrogen 36 mg/dl Creatinine 1.30 mg/dl Est Creatinine Clear Calc Drug Dose 37.5 ml/min Estimated GFR () 57.7 Estimated GFR (Non- 49.8 BUN/Creatinine Ratio 27.9 Random Glucose 107 mg/dl Calcium Level 7.9 mg/dl Magnesium Level 2.3 mg/dl Iron Level 37 mcg/dl Total Iron Binding Capacity 196 mcg/dl Total Creatine Kinase 86 U/L Creatine Kinase MB 3.8 ng/ml Creatine Kinase MB Ratio 4.4 Troponin I 0.052 ng/ml Assessment and Plan 85 M with weakness found to have new onset a fib and elevated troponin New-onset atrial fibrillation/elevated troponin, echocardiogram done from 3 weeks ago shows ejection fraction 45-50%, with mild aortic regurgitation. Pt is anticoagulated for afib, AUCTE SYSTOLIC/DIASTOILC HEART FAILURE lasix dosing judiciously given lower blood pressure ACUTE KIDNEY DISEASE RESOLVED, CKD 3 decrease lisinopril given low Ef may benefit from a small dose Anemia- iron, B12 , folic acid, reticulocyte count. Heme test stools. Osteoporosis--he is on alendronate weekly in the outpatient setting. We'll continue calcium and vitamin D as inpatient.
[2016-06-23 20:10] VITALS: BP 110/60; PULSE 72; TEMP 36.7; O2SAT 93
[2016-06-23 23:42] VITALS: BP 101/56; PULSE 86; TEMP 36.9; O2SAT 91
[2016-06-24 04:35] VITALS: BP 103/53; PULSE 73; TEMP 36.7; O2SAT 90
[2016-06-24 06:02] LABS: BASO % 0.4 %; BASO ABS # 0.04 K/uL (0-0.2); COMPLETE YES; EOS % 2.6 %; HEMATOCRIT 40.6 % (42-52); IG% 0.4 %; LYMPH % 26.6 %; LYMPH ABS # 2.44 K/uL (1.2-3.4); MEAN CELL VOLUME 90.8 fL (80-100); MEAN PLATELET VOLUME 10.3 fL (7.4-10.4); MONO % 10.3 %; NEUT % 59.7 %; PLATELET COUNT 203 K/uL (130-400); RED BLOOD COUNT 4.47 M/uL (4.7-6.1); WHITE BLOOD COUNT 9.16 K/uL (4.8-10.8)
[2016-06-24 06:19] LABS: INR 1.1 (0.9-1.1); PROTHROMBIN TIME (PATIENT) 11.9 SECONDS (9.0-12.0)
[2016-06-24 06:37] LABS: BUN/CREATININE RATIO 24.5 (10-20); CALCIUM 8.2 mg/dl (8.5-10.1); CREATININE 1.3 mg/dl (0.60-1.40); MAGNESIUM 2.2 mg/dl (1.8-2.4); POTASSIUM 3.9 mmol/L (3.5-5.1)
[2016-06-24] MEDS ORDERED: RIVAROXABAN PO (07:25)
[2016-06-24] MEDS ORDERED: LSN5 PO (07:25)
[2016-06-24] MEDS ORDERED: [UNRECOGNIZED DRUG - CODE] (07:25)
[2016-06-24] MEDS ORDERED: TPRSR25 PO (07:25)
[2016-06-24] MEDS ORDERED: XRL15 PO (07:25)
[2016-06-24] MEDS ORDERED: ASPEC81 PO (07:25)
--- NOTE | 2016-06-24 07:26 | Discharge Instructions ---
Discharge Instructions Date of Service June 24, 2016. Admission Reason for Admission: Elevated Troponin, New Onset Atrial Fibrillation Discharge Discharge Diagnosis / Problem: ACUTE SYSTOLIC/DIASTOLIC HEART FAILURE, ATRIAL FIBRILLATION Discharge Goals Goal(s): Diagnostic testing, Therapeutic intervention Activity Recommendations Activity Limitations: resume your previous activity . Instructions / Follow-Up Instructions / Follow-Up Call your Primary Care doctor if any of the following symptoms or problems start or get worse: * Shortness of breath or difficulty breathing * Wake up at night short of breath * Chest pain * Cough * Swelling of your hands, feet, or legs * More fatigued or tired with your normal activity * Palpitations - sudden fast heart beats WEIGHT * Weigh yourself every morning after using the bathroom. * Use the same scale. * Wear the same amount of clothing. * Write your weight down on a chart. * Call your Primary Care doctor if you gain more than 2-3 pounds in 1-2 days. MEDICATIONS * Use this discharge instruction sheet for medication instructions. * Take your medications at the time your doctor ordered. * Do not skip a dose of your medicines. * If you miss a dose of medicine, take it as soon as possible, but DO NOT DOUBLE A DOSE. * Read your medicine information when you get home. * Know all of the side effects of your medicine. If in doubt, ask your pharmacist * Call your Primary Care doctor's office if you have any side effects. * Be sure all of your doctors know what medicine and herbs you take (including cold, flu, and herbal medicine). Take the following with you to your follow-up doctor appointments: * Weight Chart * Medication List * List of questions Do not drink excessive alcohol, beer or wine. Current Hospital Diet Patient's current hospital diet: AHA Diet (Heart Healthy) Discharge Diet Recommended Diet: Low Sodium Diet (2gm Na) Pending Studies Studies pending at discharge: no Medical Emergencies . Who to Call and When: Call 911 or go to the Emergency Room if: * If at any time you feel your situation is an emergency * You have tightness or pain in your chest that does not go away with rest or Nitroglycerin * You are very short of breath even with rest . Non-Emergent Contact Non-Emergency issues call your: [employer] Call Non-Emergent contact if: temperature is above 101, your pain is unusual for you . . "Provider Documentation" section prepared by Freddy Werner. . VTE Core Measure Inpt VTE Proph given/why not?: Unfractionated heparin SQ, Other Anticoagulation (IV heparin per standard dose weightbase protocol without bolus. )
[2016-06-24 08:00] VITALS: BP 112/51; PULSE 75; TEMP 36.5; O2SAT 92
[2016-06-24] MEDS ORDERED: ASPIRIN 81 MG ECTAB PO SCH (09:00)
[2016-06-24] MEDS ORDERED: METOPROLOL SUCC 25MG EXT REL TAB PO SCH (09:00)
[2016-06-24] MEDS ORDERED: FURO-85 PO (09:58)
[2016-06-24] MEDS: LISINOPRIL 5 MG TAB PO SCH (10:13)
[2016-06-24] MEDS: CHOLECALCIFEROL 1000 INTER.UNIT TAB PO SCH (10:13)
--- NOTE | 2016-06-24 10:50 | Cardiology Follow-Up ---
Subjective Date of Service: June 24, 2016. Pt evaluation today including: conversation w/ patient, conversation w/ family , physical exam, lab review, review of studies, review of inpatient medication list, conversation w/ attending History of Present Illness This is a very pleasant 85-year-old gentleman with a history of hypertension, diabetes mellitus and more recently a cough and peripheral edema. He was admitted with worsening symptoms and identification of atrial fibrillation. His symptoms go back to the beginning of this calendar year when he noted some edema and discomfort in his legs. His blood pressure medications were adjusted but the edema continued. He was treated initially by Dr. Alberts but subsequently by the [place] I don't have those records. Ultimately he had an echocardiogram done 06/08/2016 where he had mild left ventricular dysfunction with an ejection fraction of 45-50%. I reviewed the rhythm on that echocardiogram and he was in sinus rhythm with a heart rate in the 70s to 80s at that time. He had some adjustment in his diuretics but continued to have increasing symptoms and edema and presented to the emergency room on 06/23/2016. With initial treatment in the emergency room he felt much better, has lost his edema and has no respiratory complaints. He is unaware of his rhythm has not had any palpitations or awareness of his rhythm being irregular or abnormal. He has remained in atrial fibrillation. His troponin was minimally elevated on admission and remained minimally elevated and stable over 4 evaluations. Social History Smoking Status: Never Smoker History of Alcohol Use: No Review of Systems Respiratory: + dyspnea on exertion, + shortness of breath, No cough, No dyspnea at rest, No sputum, No wheezing Cardiac: + edema, + orthopnea, No PND, No chest pain Medications Cardiovascular: Item Value Date Time Metoprolol 25 mg 06/24/16 0900 Succinate QAM/PO 06/24/16 1013 (Toprol Xl Tab) Aspirin 81 mg 06/24/16 0900 (Ecotrin Tab) QAM/PO 06/24/16 1012 Lisinopril 5 mg 06/23/16 0900 (Zestril Tab) QAM/PO 06/24/16 1013 Objective Vital Signs Past 12 Hours Date Time Temp Pulse Resp B/P Pulse Ox O2 Delivery O2 Flow Rate FiO2 06/24/16 04:35 36.7 73 22 103/53 90 Nasal Cannula 2.0 06/24/16 04:00 Nasal Cannula 2.0 06/24/16 00:00 Nasal Cannula 2.0 06/23/16 23:42 36.9 86 20 101/56 91 Nasal Cannula 2.0 Last Recorded Weight-Kilograms: 71.000 Intake & Output 8-Hour Column 06/23/16 06/24/16 06/24/16 16:00 00:00 08:00 Intake Total 1138 ml 524 ml 290 ml Output Total 2225 ml 1125 ml 300 ml Balance -1087 ml -601 ml -10 ml 24-Hour Column 06/24/16 08:00 Intake Total 1952 ml Output Total 3650 ml Balance -1698 ml Physical Exam Constitutional: Level of Distress: NAD Lungs: Auscultation: breath sounds normal Cardiovascular: Heart Auscultation: no murmurs, irregular rate rhythm Extremities: no edema Data Laboratory Results: Last 24 Hours Test 06/23/16 12:03 06/24/16 05:10 Total Creatine Kinase 82 U/L Creatine Kinase MB 4.0 ng/ml Creatine Kinase MB Ratio 4.9 Troponin I 0.047 ng/ml White Blood Count 9.16 K/uL Red Blood Count 4.47 M/uL Hemoglobin 13.4 g/dL Hematocrit 40.6 % Mean Corpuscular Volume 90.8 fL Mean Corpuscular Hemoglobin 30.0 pg Mean Corpuscular Hemoglobin Concent 33.0 g/dl Platelet Count 203 K/uL Mean Platelet Volume 10.3 fL Neutrophils (%) (Auto) 59.7 % Lymphocytes (%) (Auto) 26.6 % Monocytes (%) (Auto) 10.3 % Eosinophils (%) (Auto) 2.6 % Basophils (%) (Auto) 0.4 % Neutrophils # (Auto) 5.46 K/uL Lymphocytes # (Auto) 2.44 K/uL Monocytes # (Auto) 0.94 K/uL Eosinophils # (Auto) 0.24 K/uL Basophils # (Auto) 0.04 K/uL RDW Standard Deviation 43.7 fL RDW Coefficient of Variation 13.2 % Immature Granulocyte % (Auto) 0.4 % Immature Granulocyte # (Auto) 0.04 K/uL Prothrombin Time 11.9 SECONDS Prothromb Time International Ratio 1.1 Activated Partial Thromboplast Time 51.6 SECONDS Partial Thromboplastin Ratio 2.0 Sodium Level 139 mmol/L Potassium Level 3.9 mmol/L Chloride Level 104 mmol/L Carbon Dioxide Level 29 mmol/L Anion Gap 6.0 mmol/L Blood Urea Nitrogen 32 mg/dl Creatinine 1.30 mg/dl Est Creatinine Clear Calc Drug Dose 37.5 ml/min Estimated GFR () 57.7 Estimated GFR (Non- 49.8 BUN/Creatinine Ratio 24.5 Random Glucose 104 mg/dl Calcium Level 8.2 mg/dl Magnesium Level 2.2 mg/dl Imaging: His chest x-ray on admission shows cardiomegaly with small pleural effusions but no clear congestive heart failure. EKG: Atrial fibrillation with a well-controlled heart rate. No acute changes. Telemetry reviewed: Atrial fibrillation with a well-controlled heart rate Assessment and Plan #1. Congestive heart failure: He presented with progressive peripheral edema and a cough, although his admission papers say he was short of breath he denies that on my evaluation today. He does admit to the cough but feels that he was not short of breath. He denies orthopnea or PND. His chest x-ray was clear on admission, but he did have small pleural effusions. I believe he was in mild congestive heart failure, probably on the basis of mild left ventricular dysfunction and atrial fibrillation (predominantly diastolic heart failure). The cause of the heart failure may be predominantly due to fluid retention not cardiac function. Now he feels well after diuresis. My approach would be to try to maintain his weight where it is, and he knows to cut down on fluid as it seems that he is drinking too much fluid as well. We will need to follow him closely in heart failure clinic over the near future to make sure that he stabilizes on his regimen. #2. Atrial fibrillation: He appears to have had recent onset of atrial fibrillation but we can't identify the actual time of onset. I did review his rhythm on his echocardiogram 06/08/2016 and he was in sinus, therefore it is either paroxysmal or he went into it some time after that. In either case he needs anticoagulation. I would recommend keeping him on an anticoagulant and I will follow him up in the office in 2-3 weeks, if he remains in atrial fibrillation I would arrange a cardioversion. If he converts on his own that would imply paroxysmal atrial fibrillation and we can consider an antiarrhythmic but he is asymptomatic and it seemingly did not have much to do with his heart failure, as the heart failure predated the atrial fibrillation. The atrial fibrillation may be in part secondary to his heart failure. #3. Cardiomyopathy: He seems to have a mild cardiomyopathy, it does not seem to be ischemic in that he does not have evidence of myocardial infarction on his electrocardiogram or echocardiogram. Nevertheless we should consider an evaluation for coronary disease but I would wait in tell his heart failure has resolved. At that point I think we should do a stress echo. I agree with low- dose metoprolol and lisinopril, we don't need heart rate control but we should use beta blockers for his cardiomyopathy. Thank you for allowing me to participate in his care.
[2016-06-24 11:17] VITALS: BP 112/51; PULSE 75; TEMP 36.5; O2SAT 92
--- NOTE | 2016-06-24 14:40 | Discharge Summary ---
Discharge Summary Date of Service June 24, 2016. Discharge Summary Admission Date: June 22, 2016 at 19:58 Discharge Date: June 24, 2016 Discharge Disposition: Home with services Principal Diagnosis: acute systolic/diastoilc heart failure Problems/Secondary Diagnoses: (1) Diabetes Status: Chronic Immunizations: Have You Had Influenza Vaccine: N/A History of Tetanus Vaccine?: Unknown History of Pneumococcal: Unknown History of Hepatitis B Vaccine: Unknown Consultations: Dr Dominguez Medication Reconciliation New Medications: Furosemide (Lasix) 20 Mg Tab 40 MG PO DAILY, #90 TAB may substitute 40 mg tabs if available for 90 days Rivaroxaban (Xarelto) 15 Mg Tab 15 MG PO BID, #42 DOSE TAKE 15 MG BID FOR 21 DAYS THEN 20 MG DAILY [Rivaroxaban] () 20 MG PO DAILY, #30 6 Refills TO BEGIN AFTER 15 BID LOADING INTERVAL [Raven] () Aspirin (Aspirin EC Low Dose) 81 Mg Ectab 81 MG PO QAM, #365 DOSE Lisinopril (Lisinopril) 5 Mg Tab 5 MG PO QAM, #30 TAB 6 Refills Metoprolol Succinate (Metoprolol Succinate ER) 25 Mg Tabcr 25 MG PO QAM, #60 DOSE 5 Refills Continued Medications: Calcium Carbonate (Os-Ajith 500) 1,250 Mg Tab 500 MG PO DAILY, TAB Cholecalciferol (Vitamin D3 High Potency) 1,000 Unit Cap 2 CAPSULES PO DAILY [Alendronate] () 70 MG PO WK Discontinued Medications: Amlodipine (Norvasc) 10 Mg Tab 10 MG PO QAM, TAB Lisinopril (Zestril) 40 Mg Tab 40 MG PO QAM, TAB Discharge Exam Review of Systems: Constitutional: No chills, No fever Respiratory: No cough, No sputum Cardiovascular: No chest pain, No edema, No orthopnea Abdomen: No diarrhea, No nausea, No pain Musculoskeletal: No joint pain, No muscle pain Genitourinary - Male: No dysuria, No hematuria Psychiatric: No anhedonism, No depression symptoms Physical Exam: General Appearance: WD/WN, no apparent distress Neck: supple, no JVD Respiratory/Chest: chest non-tender, lungs clear, normal breath sounds Cardiovascular: regular rate, rhythm, no murmur Abdomen / GI: normal bowel sounds, non tender, soft Extremities: no pedal edema, normal range of motion Neurologic/Psychiatric: alert, oriented x 3 Hospital Course 85 M with weakness found to have new onset a fib and elevated troponin, elevated troponin from supply demand, no suspect for ACS New-onset atrial fibrillation/elevated troponin, echocardiogram done from 3 weeks ago shows ejection fraction 45-50%, with mild aortic regurgitation. Pt is anticoagulated for afib, with xarelto will be 15$ a month co pay, pt educated with in room on medication AUCTE SYSTOLIC/DIASTOILC HEART FAILURE lasix dosing will be 40 mg a day, reduced lisinopril and started metoprolol ACUTE KIDNEY DISEASE RESOLVED, CKD 3 decrease lisinopril given low Ef may benefit from a small dose Anemia- iron, B12 , folic acid, reticulocyte count. Heme test stools. Osteoporosis--he is on alendronate weekly in the outpatient setting. We'll continue calcium and vitamin D as inpatient. follow up with heart failure clinic and DR Dominguez Total Time Spent: Greater than 30 minutes This includes examination of the patient, discharge planning, medication reconciliation, and communication with other providers. Discharge Instructions Please refer to the electronic Patient Visit Report (Discharge Instructions) for additional information.
[2016-10-18] MEDS ORDERED: LPR25 PO (13:31)
[2016-10-18] MEDS ORDERED: SPR25 PO (13:31)
[2016-10-18] MEDS ORDERED: LSX20 PO (13:31)
[2016-10-18] MEDS ORDERED: LNX125 PO (13:31)
== END 2016-06-24 11:53 | disposition home health service (06) | DRG 308 ==
LOC: ENRESERVDT → ENRESERVTM → C.EDB 17:20 → C.2E 19:58
PROVIDERS: ADMIT Hospitalist; ATTEND Internal Medicine
DX: I48.91 Unspecified atrial fibrillation (principal); I50.41 Acute combined systolic (congestive) and diastolic (congestive) heart failure; N17.9 Acute kidney failure, unspecified; I13.0 Hypertensive heart and chronic kidney disease with heart failure and stage 1 through stage 4 chronic kidney disease, or unspecified chronic kidney disease; I42.9 Cardiomyopathy, unspecified; R79.89 Other specified abnormal findings of blood chemistry; R94.39 Abnormal result of other cardiovascular function study; D64.9 Anemia, unspecified; N18.3 Chronic kidney disease, stage 3 (moderate); I35.1 Nonrheumatic aortic (valve) insufficiency; M81.0 Age-related osteoporosis without current pathological fracture; E11.22 Type 2 diabetes mellitus with diabetic chronic kidney disease; E87.70 Fluid overload, unspecified; Z87.891 Personal history of nicotine dependence; Z79.899 Other long term (current) drug therapy

== ENCOUNTER 2016-06-26 22:44 | Emergency (ER) | payer OTHER ==
[~2016-06-26 22:44] MED LIST changes: -AMLO-114 PO; +ASPEC81 PO; +FURO-85 PO; -LISI40TA PO; +LSN5 PO; +RIVAROXABAN PO; +TPRSR25 PO; +XRL15 PO; +[UNRECOGNIZED DRUG - CODE]
--- NOTE | 2016-06-26 23:05 | DIAGNOSTIC IMAGING REPORT ---
HEAD CT NONCONTRAST CT DOSE: 844.62 mGy.cm HISTORY: Altered mental status. TECHNIQUE: Multiaxial CT images of the head were performed without the use of intravenous contrast. Automated exposure control was utilized for this study. Comparison: None. Findings: The paranasal sinuses and mastoid air cells are clear. The calvarium and skull base are intact. The ventricles and sulci are within normal limits. There is no mass, hematoma, midline shift, or acute infarct. Impression: No acute intracranial abnormality. Electronically signed by: Raza Herrera M.D. 06/26/2016 11:04 PM Dictated Date/Time: 06/26/2016 11:00 PM
[2016-06-26 23:08] VITALS: TEMP 36.5
[2016-06-26] MEDS ORDERED: FRS/40 PO (23:11)
[2016-06-26 23:12] LABS: BASO % 0.3 %; BASO ABS # 0.03 K/uL (0-0.2); COMPLETE YES; EOS % 2.3 %; HEMATOCRIT 40.8 % (42-52); IG% 0.2 %; LYMPH % 38.3 %; LYMPH ABS # 4.17 K/uL (1.2-3.4); MEAN CELL VOLUME 92.3 fL (80-100); MEAN CORPUSCULAR HEMOGLOBIN 31.2 pg (25-34); MEAN CORPUSCULAR HGB CONC 33.8 g/dl (32-36); MEAN PLATELET VOLUME 9.9 fL (7.4-10.4); MONO % 10.3 %; NEUT % 48.6 %; PLATELET COUNT 268 K/uL (130-400); RED BLOOD COUNT 4.42 M/uL (4.7-6.1); WHITE BLOOD COUNT 10.88 K/uL (4.8-10.8)
[2016-06-26] MEDS ORDERED: SODIUM CHLORIDE 0.9% 1000ML 1,000 ML IV STA (23:19)
[2016-06-26 23:23] LABS: INR 1.5 (0.9-1.1); PARTIAL THROMBOPLASTIN RATIO 1.3; PROTHROMBIN TIME (PATIENT) 16.1 SECONDS (9.0-12.0)
[2016-06-26 23:24] LABS: ISTAT CREATININE 1.3 mg/dl (0.6-1.3); ISTAT HEMOGLOBIN 14.6 g/dl (14.0-18.0); ISTAT IONIZED CALCIUM 1.2 mmol/l (1.12-1.32)
[2016-06-26 23:26] VITALS: BP 143/66
[2016-06-26 23:28] LABS: ALT/SGPT 47 U/L (12-78); AST/SGOT 36 U/L (15-37); BLOOD UREA NITROGEN 27 mg/dl (7-18); BUN/CREATININE RATIO 20.9 (10-20); CALCIUM 8.4 mg/dl (8.5-10.1); CARBON DIOXIDE 27 mmol/L (21-32); CHLORIDE 105 mmol/L (98-107); GLUCOSE 116 mg/dl (70-99); POTASSIUM 4.1 mmol/L (3.5-5.1); SODIUM 143 mmol/L (136-145)
--- NOTE | 2016-06-26 23:28 | EMERGENCY ROOM VISIT NOTE ---
History Report prepared by Kajal: Luis Lee Under the Supervision of: Dr. Freeman Moran M.D. First contact with patient: 22:40 Chief Complaint: ALTERED MENTAL STATUS Stated Complaint: FALL, ALTERED MENTAL STATUS History of Present Illness The patient is an 85 year old male who presents to the Emergency Room with complaints of altered mental status that started earlier this evening. He was brought to the ED via EMS. He was admitted last week for new onset of atrial fibrillation and was started on Xarelto BID. His states he was in good health until this evening when she heard him collapse at home at 2130. She is unsure if he hit his head. She notes he was unresponsive initially and gradually woke up confused. He has right sided neglect and slurred speech per EMS. His right arm has mildly improved since arrival to the ED. He had normal vital signs for EMS. It is unknown if he took any medications prior to arrival. His denies any history of previous TIA's, CVA's or smoking. She admits his vaccines are up to date. Source of History: spouse/significant other (), EMS History Limited By: AMS Onset: 2129 Position: other (global) Timing: other (persistent) Associated Symptoms: + weakness (right sided weakness) Review of Systems See HPI for pertinent positives & negatives. A total of 10 systems reviewed and were otherwise negative. Past Medical & Surgical Medical Problems: (1) Diabetes (2) Kidney stones Family History Diabetes mellitus Hypertension Kidney disease Kidney stones Social History Smoking Status: Never Smoker Alcohol Use: none Drug Use: none Marital Status: Housing Status: lives with family Current/Historical Medications Scheduled Aspirin (Aspirin EC Low Dose), 81 MG PO QAM Furosemide (Lasix), 40 MG PO DAILY Lisinopril (Lisinopril), 5 MG PO QAM Metoprolol Succinate (Metoprolol Succinate ER), 25 MG PO QAM Rivaroxaban (Xarelto), 15 MG PO BID [Rivaroxaban], 20 MG PO DAILY Allergies Coded Allergies: No Known Allergies (Unverified , 06/26/16) Physical Exam Vital Signs Date Time Temp Pulse Resp B/P Pulse Ox O2 Delivery O2 Flow Rate FiO2 06/26/16 23:34 73 95 06/26/16 23:29 72 94 06/26/16 23:26 143/66 06/26/16 23:25 78 20 143/66 94 Nasal Cannula 4.0 06/26/16 23:24 77 95 06/26/16 23:22 134/70 06/26/16 23:19 78 94 06/26/16 23:14 84 95 06/26/16 23:09 77 86 06/26/16 23:08 36.5 78 18 137/77 94 Nasal Cannula 4.0 06/26/16 23:04 72 95 06/26/16 23:03 70 06/26/16 23:00 41 06/26/16 23:00 137/77 06/26/16 22:59 76 06/26/16 22:59 76 93 Physical Exam GENERAL: Patient is acutely ill appearing and in no distress. HEENT: No acute trauma, normocephalic atraumatic, mucous membranes moist, no nasal congestion, no scleral icterus. NECK: No stridor, no adenopathy, no meningismus, trachea is midline. LUNGS: No dyspnea. Clear to auscultation and equal bilaterally. No wheeze, no rhonchi. HEART: Regular rate and rhythm. No murmurs, rubs, gallops appreciated. ABDOMEN: Soft, nontender, bowel sounds positive, no masses appreciated, no peritonitis. BACK: No midline tenderness, no CVA tenderness EXTREMITIES: Normal motion all extremities, no cyanosis, no edema. NEUROLOGIC: Patient has complete paralysis of the right arm and leg. He has facial droop, which is slightly overcome with voluntary motion on the right side. Left gaze unable to look to the right. Right sided neglect. SKIN: No rash, no jaundice, no diaphoresis. Medical Decision & Procedures ER Provider Diagnostic Interpretation: This CT scan was reviewed and interpreted by the radiologist and reviewed by myself. HEAD CT NONCONTRAST Impression: No acute intracranial abnormality. Electronically signed by: Raza Herrera M.D. 06/26/2016 11:04 PM These X-Rays were reviewed and interpreted by myself as we do not have a radiologist on staff overnight. CHEST X-RAY, 1 VIEW Similar to previous X-Ray. Some interstitial lung disease. No fracture, no pneumothorax. PELVIS X-RAY No fracture, no dislocation, diffuse arthritis changes. Laboratory Results 06/26/16 22:20 Red Blood Count 4.42, Mean Corpuscular Volume 92.3, Mean Corpuscular Hemoglobin 31.2, Mean Corpuscular Hemoglobin Concent 33.8, Mean Platelet Volume 9.9, Neutrophils (%) (Auto) 48.6, Lymphocytes (%) (Auto) 38.3, Monocytes (%) (Auto) 10.3, Eosinophils (%) (Auto) 2.3, Basophils (%) (Auto) 0.3, Neutrophils # (Auto ) 5.29, Lymphocytes # (Auto) 4.17, Monocytes # (Auto) 1.12, Eosinophils # (Auto ) 0.25, Basophils # (Auto) 0.03 06/26/16 22:20 Test 06/26/16 22:20 06/26/16 23:11 06/26/16 23:22 White Blood Count 10.88 K/uL (4.8-10.8) Red Blood Count 4.42 M/uL (4.7-6.1) Hemoglobin 13.8 g/dL (14.0-18.0) Hematocrit 40.8 % (42-52) Mean Corpuscular Volume 92.3 fL (80-100) Mean Corpuscular Hemoglobin 31.2 pg (25-34) Mean Corpuscular Hemoglobin Concent 33.8 g/dl (32-36) Platelet Count 268 K/uL (130-400) Mean Platelet Volume 9.9 fL (7.4-10.4) Neutrophils (%) (Auto) 48.6 % Lymphocytes (%) (Auto) 38.3 % Monocytes (%) (Auto) 10.3 % Eosinophils (%) (Auto) 2.3 % Basophils (%) (Auto) 0.3 % Neutrophils # (Auto) 5.29 K/uL (1.4-6.5) Lymphocytes # (Auto) 4.17 K/uL (1.2-3.4) Monocytes # (Auto) 1.12 K/uL (0.11-0.59) Eosinophils # (Auto) 0.25 K/uL (0-0.5) Basophils # (Auto) 0.03 K/uL (0-0.2) RDW Standard Deviation 45.7 fL (36.4-46.3) RDW Coefficient of Variation 13.5 % (11.5-14.5) Immature Granulocyte % (Auto) 0.2 % Immature Granulocyte # (Auto) 0.02 K/uL (0.00-0.02) Prothrombin Time 16.1 SECONDS (9.0-12.0) Prothromb Time International Ratio 1.5 (0.9-1.1) Activated Partial Thromboplast Time 33.8 SECONDS (21.0-31.0) Partial Thromboplastin Ratio 1.3 Estimated GFR () 57.7 Estimated GFR (Non- 49.8 BUN/Creatinine Ratio 20.9 (10-20) Calcium Level 8.4 mg/dl (8.5-10.1) Total Bilirubin 0.3 mg/dl (0.2-1) Direct Bilirubin 0.2 mg/dl (0-0.2) Aspartate Amino Transf (AST/SGOT) 36 U/L (15-37) Alanine Aminotransferase (ALT/SGPT) 47 U/L (12-78) Alkaline Phosphatase 108 U/L (45-117) Troponin I 0.039 ng/ml (0-0.045) Total Protein 6.4 gm/dl (6.4-8.2) Albumin 2.7 gm/dl (3.4-5.0) Bedside Hemoglobin 14.6 g/dl (14.0-18.0) Bedside Hematocrit 43 % (42-52) Bedside Sodium 140 mEq/L (135-144) Bedside Potassium 3.9 mEq/L (3.3-5.0) Bedside Chloride 100 mEq/L (101-112) Bedside Total CO2 25 mEq/l (24-31) Anion Gap 20.0 mmol/L (16-25) Bedside Blood Urea Nitrogen 29 mg/dl (7-18) Bedside Creatinine 1.3 mg/dl (0.6-1.3) Bedside Glucose (other) 117 mg/dl (70-99) Bedside Ionized Calcium (Melody) 1.20 mmol/l (1.12-1.32) Urine Color YELLOW Urine Appearance CLEAR (CLEAR) Urine pH 5.0 (4.5-7.5) Urine Specific Marvin 1.018 (1.000-1.030) Urine Protein NEG (NEG) Urine Glucose (UA) NEG (NEG) Urine Ketones NEG (NEG) Urine Occult Blood 2+ (NEG) Urine Nitrite NEG (NEG) Urine Bilirubin NEG (NEG) Urine Urobilinogen NEG (NEG) Urine Leukocyte Esterase TRACE (NEG) Urine WBC (Auto) 1-5 /hpf (0-5) Urine RBC (Auto) >30 /hpf (0-4) Urine Hyaline Casts (Auto) 1-5 /lpf (0-5) Urine Epithelial Cells (Auto) 10-20 /lpf (0-5) Urine Bacteria (Auto) NEG (NEG) Bedside Glucose 108 mg/dl (70-99) Laboratory results as reviewed by me. Medications Administered Medications (Trade) Dose Ordered Sig/Erica Route Start Time Stop Time Status Last Admin Dose Admin Sodium Chloride (Nss 1000ml) 1,000 ml @ 999 mls/hr Q1H1M STAT IV 06/26/16 23:19 06/27/16 00:19 DC 06/26/16 23:31 999 MLS/HR ECG Indication: altered mental status Rate (beats per minute): 76 Rhythm: atrial fibrillation Findings: no acute ischemic change, other (poor baseline) Change: no significant change (similar to previous EKG) ED Course 2251: The patient was evaluated in room A1. A complete history and physical exam was performed. 2259: I discussed the patients case with Dr. Middleton, [facility]. The patient will be further evaluated. 2309: I discussed the patients case with Dr. Christensen, [facility]. He has accepted the patient as a transfer via life flight to [facility]. He is requesting the patient be kept flat and given a liter of fluid. 2310: I discussed the patients CT scan with Dr. Herrera, Radiology. He states a subtle left MCA sign is seen on CT scan. 2313: I discussed the patients case with Dr. Howe, [facility] ICU. He has accepted the patient as a transfer and is going to send a helicopter to pick him up. 2319: NSS 1000 ml @ 999 mls/hr IV. 2328: The life flight helicopter is 5 minutes out. 2334: I reevaluated the patient. He is stable. 2342: I reevaluated the patient. He is leaving via life flight helicopter to [facility]. 2347: I spoke with Dr. Christensen of [facility] again. I informed him the patient is on the way. Medical Decision Differential: Toxicological, Infectious, Stroke, SAH, Trauma, Electrolyte Abnormality, Hypoglycemia, Alcohol Intoxication, Drug Intoxication, Cardiac Abnormality, Sepsis, Meningitis/Encephalitis, Trauma, Excited Delirium, Serotonin Syndrome, Psychiatric, amongst other pathologies entertained. 85 yr old male who was prior to event very high functioning arrives from home for evaluation of right side paralysis. Sudden onset at 9:30pm with syncope followed by right sided paralysis, slurred speech and confusion. On exam he has right sided neglect. I was aware of patient prior to arrival due to EMS contact. As he was on Xarelto BID already he is not TPA candidate thus I did not call stroke alert. Sent on ems arrival immediately to CT which was negative (possible early MCA sign on left noted). Discussed with stroke neurologist at [facility] who agree this is not TPA candidate though would be interventionalist possibility. Appreciate input of [facility] as well though given his insurance and equal capabilities at both facilities will transfer to [facility]. Stroke cart set up for [facility] evaluation while I contacted [facility] in case [facility] unable to take patient. Discussed at length with Neurologist at [facility] who agrees they can management patient at their facility. Given helicopter available able to get him to [facility] within 3 hours of his stroke onset thus possibility of IR retrieval is high. Patient laid flat and given 1 L NSS bolus. Transferred emergently with stable findings. I discussed case on multiple occasions with family and answered their questions to best of my ability. Reviewed benefits of transfer and they agree. Consults Time Called: 2258 Consulting Physician: Dr. Middleton Returned Call: [phone] I discussed the patients case with Dr. Middleton, [facility]. The patient will be further evaluated. Additional Consults: Time Called: [phone] Consulted Physician: Dr. Christensen, [facility] Returned Call: [phone] Additional Comments: I discussed the patients case with Dr. Christensen, [facility]. He has accepted the patient as a transfer via life flight to [facility]. He is requesting the patient be kept flat and given a liter of fluid. Time Called: 2310 Consulted Physician: Dr. Howe, [facility] ICU Returned Call: [phone] Additional Comments: I discussed the patients case with Dr. Howe, [facility] ICU. He has accepted the patient as a transfer and is going to send a helicopter to pick him up. Impression Primary Impression: Acute ischemic left MCA stroke Critical Care I have personally spent greater than 90 minutes of critical care time in the direct management of this patient. This was a life/limb threatening event. This includes time spent evaluating patient, direct bedside care, chart review, placing orders, interpretation of diagnostic studies, discussion with consultants, patient, and family members, as well as other required patient management activities. This 90 minutes is in excess of all separately billable procedures. Scribe Attestation The scribe's documentation has been prepared under my direction and personally reviewed by me in its entirety. I confirm that the note above accurately reflects all work, treatment, procedures, and medical decision making performed by me. Departure Information Dispostion Transfer Acute Care Facility (The patient is being transferred to [facility] in [place] via Lifeflight) Referrals Marcus Alberts M.D. (PCP) Patient Instructions My [facility] Stroke History Stroke t-PA Criteria Reviewed Does NOT meet criteria for t-PA Reason t-PA Not Given Treatment not indicated (The patient is currently on Xarelto)
[2016-06-26 23:33] LABS: ALKALINE PHOSPHATASE 108 U/L (45-117)
[2016-06-26 23:34] VITALS: PULSE 73; O2SAT 95
[2016-06-26 23:41] LABS: MANUAL MICROSCOPIC REQUIRED? NO; REVIEW REQ? NO; URINE APPEARANCE CLEAR (CLEAR); URINE BILIRUBIN NEG (NEG); URINE COLOR YELLOW; URINE NITRITE NEG (NEG); URINE SPECIFIC GRAVITY 1.018 (1.000-1.030); UROBILINOGEN NEG (NEG); ZZURINE CULT IF INDIC CATH NO
--- NOTE | 2016-06-27 06:56 | DIAGNOSTIC IMAGING REPORT ---
CHEST ONE VIEW PORTABLE CLINICAL HISTORY: Fall. Altered mental status. COMPARISON STUDY: Chest radiograph June 22, 2016. FINDINGS: There is no pneumothorax. There is a small left pleural effusion. Mild cardiomegaly is noted. There is pulmonary vascular congestion. There is no lobar consolidation. Lung volumes are diminished. IMPRESSION: 1. Pulmonary vascular congestion with a small left pleural effusion. 2. No pneumothorax. Electronically signed by: Gómez Arrington M.D. 06/27/2016 6:55 AM Dictated Date/Time: 06/27/2016 6:53 AM
--- NOTE | 2016-06-27 07:07 | DIAGNOSTIC IMAGING REPORT ---
SINGLE VIEW PELVIS; SINGLE VIEW RIGHT HIP CLINICAL HISTORY: Fall. Syncope. FINDINGS: An AP portable view of the pelvis and an AP portable view of the right hip are obtained. No prior studies are available for comparison at the time of dictation. The skeletal structures are osteopenic. There is no radiographic evidence of fracture involving the hips or bony pelvis. Moderate arthritic change and joint space narrowing is seen in both hips. Mild sclerotic change is noted in the sacroiliac joints and pubic symphysis. The overlying soft tissues are within normal limits. Suture material projects over the left groin. There is atherosclerotic calcification of the femoral arteries. IMPRESSION: Osteopenia and degenerative change as above. No fracture is identified in the hips or bony pelvis. Electronically signed by: Oh Mcdonald M.D. 06/27/2016 7:05 AM Dictated Date/Time: 06/27/2016 7:04 AM
[2016-10-18] MEDS ORDERED: LNX125 PO (13:31)
[2016-10-18] MEDS ORDERED: LPR25 PO (13:31)
[2016-10-18] MEDS ORDERED: LSX20 PO (13:31)
[2016-10-18] MEDS ORDERED: SPR25 PO (13:31)
== END 2016-06-26 23:52 | disposition short-term general hospital (02) ==
LOC: C.ED 22:44
DX: I67.82 Cerebral ischemia (principal); E11.9 Type 2 diabetes mellitus without complications; Z87.442 Personal history of urinary calculi; Z79.82 Long term (current) use of aspirin; Z79.899 Other long term (current) drug therapy; Z83.3 Family history of diabetes mellitus; Z82.49 Family history of ischemic heart disease and other diseases of the circulatory system; Z84.1 Family history of disorders of kidney and ureter

== ENCOUNTER → 2016-07-18 | Outpatient (CLI) | payer OTHER ==
[~2016-07-18] MED LIST changes: +ACET-1256 PO; -ALENDRONATE PO; +ASPI81TA28 PO; +ATOR-24 PO; -CALC12502 PO; -CHOL1CAP51 PO; +FLUT0.15 NAE; +FRS/40 PO; -FURO-85 PO; +LNX125 PO; +LPR25 PO; +LSX20 PO; +METO25TA3 PO; +MULT-513 PO; +SPR25 PO; +WARF6TAB5 PO; -[UNRECOGNIZED DRUG - CODE]
[2016-07-18 10:47] LABS: INR 2.9 (0.9-1.1); PROTHROMBIN TIME (PATIENT) 32.2 SECONDS (9.0-12.0)
== END | disposition home or self-care (01) ==
LOC: C.LAB1850 08:47
PROVIDERS: ATTEND Internal Medicine Critical Care Medicine
DX: I48.91 Unspecified atrial fibrillation (principal)

== ENCOUNTER → 2016-07-28 | Outpatient (CLI) | payer OTHER ==
[~2016-07-28] MED LIST changes: +GADAVIST IV PRN
--- NOTE | 2016-07-28 17:22 | DIAGNOSTIC IMAGING REPORT ---
MRI OF THE ABDOMEN COMBO CLINICAL HISTORY: Follow-up unspecified pancreatic lesion. COMPARISON STUDY: No prior studies are available for comparison at the time of dictation. TECHNIQUE: MRI of the abdomen is performed transverse T1 and T2-weighted sequences in the axial and coronal planes. Contrast enhanced sequences were acquired following the IV administration of 7 cc of Gadavist. Subtraction imaging was utilized. The examination is significantly degraded by motion artifact. FINDINGS: Lower chest: No pleural effusion is identified. The heart is enlarged and without pericardial effusion. Liver: The liver is normal in size, contour, and signal intensity. No intrahepatic biliary ductal dilatation is seen. The hepatic veins and portal veins are patent. Gallbladder: Tiny gallstones are suspected. Spleen: Normal in size and signal intensity. Pancreas: There is moderate glandular atrophy of the pancreas. There are at least 4 tiny cystic foci measuring up to 4 mm identified within the pancreas seen on axial SSFSE images #22 in the pancreatic head, on image #18 of the pancreatic neck, and on images #16 and #19 in the pancreatic tail. The pancreatic duct is normal in caliber. No enhancing pancreatic lesion is seen on the postcontrast images. Adrenal glands: Unremarkable. Kidneys: The kidneys are atrophic and without hydronephrosis. The kidneys enhance symmetrically. There are numerous (greater than 20) bilateral renal cysts. The largest cyst in each kidney measures 7.7 cm. No enhancing renal mass lesion is seen. Abdominal aorta: Normal in course and caliber. 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 Bowel: Visualized portions of the small bowel and colon show no evidence of obstruction. Constipation is observed. Peritoneum: There is no abdominal ascites. Lymphadenopathy: None. Skeletal structures: Visualized skeletal structures times are normal marrow signal intensity. IMPRESSION: 1. Significantly motion degraded examination. 2. There are at least 4 tiny cystic foci identified scattered throughout the pancreas measuring up to 4 mm. These are typical in appearance for small IPMN's and are of doubtful significance. 3. No enhancing pancreatic mass lesion is seen. The pancreatic duct is normal in caliber. 4. Cardiomegaly. 5. Numerous bilateral renal cysts. 6. 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 7. Additional findings as above. Electronically signed by: Oh Mcdonald M.D. 07/28/2016 5:21 PM Dictated Date/Time: 07/28/2016 5:12 PM
== END | disposition home or self-care (01) ==
LOC: C.MRI 14:12
PROVIDERS: ATTEND Nurse Practitioner Family
DX: N28.1 Cyst of kidney, acquired (principal); I71.4 Abdominal aortic aneurysm, without rupture; R93.3 Abnormal findings on diagnostic imaging of other parts of digestive tract

== ENCOUNTER 2016-10-14 17:41 | Inpatient (IN) | payer OTHER ==
[~2016-10-14] VITALS: Ht 167.6 cm; Wt 65.3 kg
[2016-10-14 03:58] VITALS: BP 97/60; PULSE 94; TEMP 36.8; O2SAT 93
[~2016-10-14 17:41] MED LIST changes: -ACET-1256 PO; -ASPI81TA28 PO; -ATOR-24 PO; -FLUT0.15 NAE; -GADAVIST IV PRN; -LNX125 PO; -LPR25 PO; -LSX20 PO; -METO25TA3 PO; -MULT-513 PO; -SPR25 PO; -WARF6TAB5 PO
[2016-10-14] MEDS ORDERED: METOPROLOL TARTRATE 1 MG/ML VIAL IV STA (18:28)
--- NOTE | 2016-10-14 18:46 | EMERGENCY ROOM VISIT NOTE ---
History Report prepared by Kajal: Alex Menchaca Under the Supervision of: Dr. Oh Garcia M.D. First contact with patient: 18:22 Chief Complaint: CARDIAC ASSESSMENT Stated Complaint: COUGH,WEAKNESS Nursing Triage Summary: states that the pt has fluid around his heart and that he has had increased shortness of breath. When asked if he has pain, pt rubs his chest but does not quantitate pain. History of Present Illness The patient is an 85 year old male who presents to the Emergency Room with complaints of a constant cold beginning a few weeks ago. The patient states that he was taken off his fluid pill and Lisinopril a couple of weeks ago because his blood pressure was too low. The patient reports that since then he has been experiencing weakness, shortness of breath, and edema to his legs. He notes that he went to his PCP for similar symptoms two days ago. He reports that he had x-rays completed, and he was told to come to the ED because he had fluid around his heart. The patient notes he is on Warfarin, Metoprolol, and a baby Aspirin due to his history of a CVA. He denies chest pain and fevers Source of History: patient Onset: few weeks ago Position: other (global) Quality: other (cold) Timing: constant Associated Symptoms: + SOB, + weakness, No fevers, No chest pain Note: Associated symptoms: edema to his legs Review of Systems See HPI for pertinent positives & negatives. A total of 10 systems reviewed and were otherwise negative. Past Medical & Surgical Medical Problems: (1) Atrial fibrillation (2) CVA (cerebral vascular accident) (3) HTN (hypertension) (4) Kidney stones Surgical Problems: (1) H/O inguinal hernia repair (2) History of embolectomy (3) Hx of tonsillectomy Family History Diabetes mellitus Hypertension Kidney disease Kidney stones Social History Smoking Status: Never Smoker Alcohol Use: none Drug Use: none Marital Status: Housing Status: lives with family Current/Historical Medications Scheduled Aspirin (Aspirin Ec), 81 MG PO DAILY Atorvastatin (Lipitor), 40 MG PO QPM Fluticasone Propionate (Nasal) (Flonase Allergy Relief), 2 SPRAYS ANGIE QPM Metoprolol Succ (Toprol Xl) (Toprol-Xl), 25 MG PO DAILY Multivitamins/Minerals (Mvi With Minerals), 1 TAB PO DAILY Warfarin Sod (Jantoven), 6 MG PO 6XWK Warfarin Sod (Jantoven), 3 MG PO Q FRI Scheduled PRN Acetaminophen (Tylenol), 1 TAB PO Q4 PRN for Pain Allergies Coded Allergies: No Known Allergies (Unverified , 06/26/16) Physical Exam Vital Signs Date Time Temp Pulse Resp B/P (MAP) Pulse Ox O2 Delivery O2 Flow Rate FiO2 10/14/16 21:00 96 29 100/65 99 Room Air 10/14/16 20:30 95 27 106/67 93 Room Air 10/14/16 20:00 94 23 94/64 95 Room Air 10/14/16 19:45 103 27 94/64 93 Room Air 10/14/16 19:37 104 10/14/16 18:14 94 Room Air 10/14/16 17:53 94 Room Air 10/14/16 17:50 36.3 109 24 101/64 94 Room Air Physical Exam GENERAL: Patient is in no acute distress. HEENT: No acute trauma, normocephalic atraumatic, mucous membranes moist, no nasal congestion, no scleral icterus. NECK: No stridor, no adenopathy, no meningismus, trachea is midline. LUNGS: Diminished breath sounds with scattered wheezing, no crackles, breath sounds equal. HEART: Mildly tachycardic with a regular rhythm, no murmurs. ABDOMEN: Soft, nontender, bowel sounds positive, no hernias, no peritonitis. EXTREMITIES: No cyanosis, mild bilateral pedal edema, full range of motion of all the joints without pain or difficulty, no signs for acute trauma. NEUROLOGIC: Oriented x 3, no acute motor or sensory deficits, no focal weakness. SKIN: No rash, no jaundice, no diaphoresis. Medical Decision & Procedures ER Provider Diagnostic Interpretation: X-ray results as stated below per interpretation by me and the radiologist: CHEST ONE VIEW PORTABLE CLINICAL HISTORY: EVALUATE RESPIRATORY DISTRESS. DYSPNEA dyspnea COMPARISON STUDY: 06/26/2016 FINDINGS: Moderate stable cardiomegaly. Small bilateral pleural effusions. Findings of developing congestive heart failure. IMPRESSION: Congestive heart failure The above report was generated using voice recognition software. It may contain grammatical, syntax or spelling errors. Electronically signed by: Solomon Lui M.D. 10/14/2016 6:44 PM Dictated Date/Time: 10/14/2016 6:44 PM Laboratory Results 10/14/16 19:26 Red Blood Count 4.77, Mean Corpuscular Volume 91.4, Mean Corpuscular Hemoglobin 29.4, Mean Corpuscular Hemoglobin Concent 32.1, Mean Platelet Volume 10.8, Neutrophils (%) (Auto) 47.9, Lymphocytes (%) (Auto) 39.1, Monocytes (%) (Auto) 11.5, Eosinophils (%) (Auto) 1.1, Basophils (%) (Auto) 0.3, Neutrophils # (Auto ) 4.33, Lymphocytes # (Auto) 3.54, Monocytes # (Auto) 1.04, Eosinophils # (Auto ) 0.10, Basophils # (Auto) 0.03 10/14/16 19:26 Test 10/14/16 19:26 White Blood Count 9.05 K/uL (4.8-10.8) Red Blood Count 4.77 M/uL (4.7-6.1) Hemoglobin 14.0 g/dL (14.0-18.0) Hematocrit 43.6 % (42-52) Mean Corpuscular Volume 91.4 fL (80-100) Mean Corpuscular Hemoglobin 29.4 pg (25-34) Mean Corpuscular Hemoglobin Concent 32.1 g/dl (32-36) Platelet Count 202 K/uL (130-400) Mean Platelet Volume 10.8 fL (7.4-10.4) Neutrophils (%) (Auto) 47.9 % Lymphocytes (%) (Auto) 39.1 % Monocytes (%) (Auto) 11.5 % Eosinophils (%) (Auto) 1.1 % Basophils (%) (Auto) 0.3 % Neutrophils # (Auto) 4.33 K/uL (1.4-6.5) Lymphocytes # (Auto) 3.54 K/uL (1.2-3.4) Monocytes # (Auto) 1.04 K/uL (0.11-0.59) Eosinophils # (Auto) 0.10 K/uL (0-0.5) Basophils # (Auto) 0.03 K/uL (0-0.2) RDW Standard Deviation 57.1 fL (36.4-46.3) RDW Coefficient of Variation 16.9 % (11.5-14.5) Immature Granulocyte % (Auto) 0.1 % Immature Granulocyte # (Auto) 0.01 K/uL (0.00-0.02) Prothrombin Time 32.1 SECONDS (9.0-12.0) Prothromb Time International Ratio 2.9 (0.9-1.1) Activated Partial Thromboplast Time 33.8 SECONDS (21.0-31.0) Partial Thromboplastin Ratio 1.3 Anion Gap 10.0 mmol/L (3-11) Est Creatinine Clear Calc Drug Dose 37.5 ml/min Estimated GFR () 57.7 Estimated GFR (Non- 49.8 BUN/Creatinine Ratio 22.4 (10-20) Calcium Level 9.1 mg/dl (8.5-10.1) Magnesium Level 1.9 mg/dl (1.8-2.4) Total Bilirubin 0.7 mg/dl (0.2-1) Aspartate Amino Transf (AST/SGOT) 30 U/L (15-37) Alanine Aminotransferase (ALT/SGPT) 26 U/L (12-78) Alkaline Phosphatase 90 U/L (45-117) Troponin I 0.621 ng/ml (0-0.045) Pro-B-Type Natriuretic Peptide 01159 pg/ml (0-1800) Total Protein 6.5 gm/dl (6.4-8.2) Albumin 3.0 gm/dl (3.4-5.0) Globulin 3.5 gm/dl (2.5-4.0) Albumin/Globulin Ratio 0.9 (0.9-2) Laboratory results reviewed by me. Medications Administered Medications (Trade) Dose Ordered Sig/Erica Route Start Time Stop Time Status Last Admin Dose Admin Metoprolol Tartrate (Lopressor Iv) 2.5 mg NOW STAT IV 10/14/16 18:28 10/14/16 18:32 DC 10/14/16 19:37 2.5 MG Furosemide (Lasix Inj) 40 mg NOW STAT IV 10/14/16 18:52 10/14/16 18:53 DC 10/14/16 19:37 40 MG ECG Indication: SOB/dyspnea Rate (beats per minute): 112 Rhythm: other (Potential accelerated junction) Findings: ST depression (Lateral), no ectopy Comparison ECG Date: 06/26/16 Change: Rate has increased, ST Depression in the lateral leads are new. Second EKG in the same visit: Sinus rhythm with rate of 95, 1st degree AV block , ST depressions laterally, no ectopy - Seems improved from the first EKG today. ED Course 1823: The patient was evaluated in room A12A. A complete history and physical exam was performed. 1827: Ordered Metoprolol Tartrate 2.5mg IV 1851: Ordered Furosemide 40mg IV 2024: I reevaluated the patient and updated him of his current exam findings. 2025: I discussed the patient's case with Dr. Chen, Cardiology. He suggested the patient be evaluated for further treatment and receive dialysis as an inpatient. 2049:I discussed the patient's case with RADHA Gomez [facility] Hospitalist. She will evaluate the patient for further treatment and care. Medical Decision The patient is an 85 year old male who presents to the ED with complaints of a cold and SOB. Differential diagnoses considered include CHF, pneumonia, fluid overload, bronchitis, dysrhythmia, anemia, ND, electrolyte imbalance. There is no leukocytosis or concerning anemia. No significant electrolyte abnormality, kidney failure or hepatitis. INR is elevated consistent with his Coumadin use. EKG shows a possible accelerated junctional rhythm. Rate was 112. There was ST depression laterally which was felt to be new. Cardiac enzyme testing times one does show a slight troponin elevation consistent with cardiac strain or injury. Chest x-ray shows heart failure, no pneumonia or pneumothorax. BNP was elevated consistent with fluid overload. The patient was given a small dose of IV Lopressor, he received IV Lasix. He has diuresed. The heart rate has slowed. Repeat EKG demonstrates a sinus rhythm with a long first-degree AV block. The lateral ST depressions were still seen but seemed somewhat improved. I discussed the case with cardiology. I talked to the patient about my findings. I did speak to the embedded case manager and the on-call hospitalist. Given the heart failure, the hypotension, the tachycardia, the EKG changes and the elevated cardiac markers, admission/observation was warranted. Medication Reconcilliation Current Medication List: was personally reviewed by me Blood Pressure Screening Patient's blood pressure: Low blood pressure Monitored by hospitalist Consults Time Called: 1936 Consulting Physician: Dr. Chen, Cardiology Returned Call: 2025 I discussed the patient's case with Dr. Chen, Cardiology. He suggested the patient be evaluated for further treatment and receive dialysis as an inpatient. Additional Consults: Time Called: 2039 Consulted Physician: RADHA Gomez Hospitalist Returned Call: 2049 Additional Comments: I discussed the patient's case with RADHA Gomez Hospitalist. She will evaluate the patient for further treatment and care. Impression Primary Impression: CHF (congestive heart failure) Additional Impressions: Tachycardia Elevated troponin I level Scribe Attestation The scribe's documentation has been prepared under my direction and personally reviewed by me in its entirety. I confirm that the note above accurately reflects all work, treatment, procedures, and medical decision making performed by me. Departure Information Dispostion Being Evaluated By Hospitalist Referrals Marcus Alberts M.D. (PCP) Patient Instructions My [facility] Problem Qualifiers
[2016-10-14] MEDS ORDERED: FUROSEMIDE 40 MG/4 ML VIAL IV STA (18:52)
[2016-10-14 19:47] LABS: BASO % 0.3 %; BASO ABS # 0.03 K/uL (0-0.2); COMPLETE YES; EOS % 1.1 %; HEMATOCRIT 43.6 % (42-52); IG% 0.1 %; LYMPH % 39.1 %; LYMPH ABS # 3.54 K/uL (1.2-3.4); MEAN CELL VOLUME 91.4 fL (80-100); MEAN CORPUSCULAR HEMOGLOBIN 29.4 pg (25-34); MEAN CORPUSCULAR HGB CONC 32.1 g/dl (32-36); MEAN PLATELET VOLUME 10.8 fL (7.4-10.4); MONO % 11.5 %; NEUT % 47.9 %; PLATELET COUNT 202 K/uL (130-400); RED BLOOD COUNT 4.77 M/uL (4.7-6.1); WHITE BLOOD COUNT 9.05 K/uL (4.8-10.8)
[2016-10-14 19:58] LABS: INR 2.9 (0.9-1.1); PARTIAL THROMBOPLASTIN RATIO 1.3; PROTHROMBIN TIME (PATIENT) 32.1 SECONDS (9.0-12.0)
[2016-10-14 20:07] LABS: BUN/CREATININE RATIO 22.4 (10-20); CALCIUM 9.1 mg/dl (8.5-10.1); CREATININE 1.3 mg/dl (0.60-1.40); MAGNESIUM 1.9 mg/dl (1.8-2.4); POTASSIUM 4.7 mmol/L (3.5-5.1)
[2016-10-14 20:13] LABS: ALB/GLOB RATIO 0.9 (0.9-2)
[2016-10-14] MEDS ORDERED: ASPI81TA28 PO (21:11)
[2016-10-14] MEDS ORDERED: FLUT0.15 NAE (21:11)
[2016-10-14] MEDS ORDERED: WARF6TAB5 PO ×2 (21:11)
[2016-10-14] MEDS ORDERED: ACET-1256 PO (21:11)
[2016-10-14] MEDS ORDERED: MULT-513 PO (21:11)
[2016-10-14] MEDS ORDERED: METO25TA3 PO (21:11)
[2016-10-14] MEDS ORDERED: ATOR-24 PO (21:11)
[2016-10-14] MEDS ORDERED: ONDANSETRON INJ 2 MG/ML 2 ML VIAL IV PRN (21:30)
[2016-10-14] MEDS ORDERED: ACETAMINOPHEN 325 MG TAB PO PRN (21:30)
[2016-10-14] MEDS ORDERED: NITROGLYCERIN 0.4 MG SL PER TAB CHARGE SL PRN (21:30)
--- NOTE | 2016-10-14 22:02 | History and Physical ---
History & Physical Date & Time of Service: Oct 14, 2016 ~ 21:00 Chief Complaint: Cough,Shortness of Breath Primary Care Physician: Nita Delaney M.D. (MEDICAL) History of Present Illness 85 year old male who presents to the ER with cough and shortness of breath. Symptoms have been going on for about one week. Patient was seen by his PCP a couple of days ago. CXR was obtained that showed mild CHF. Patient was referred to the ED for further evaluation. Patient reports cough has been non productive. No fever or chills. He notes orthopnea and has been using an extra pillow to sleep. Mild lower extremity edema. He denies chest pain and palpitations. No lightheadedness, dizziness, diaphoresis, or syncopal events. 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 No new unilateral weakness, numbness, or tingling. He denies abdominal pain, nausea, vomiting, and diarrhea. No urinary symptoms. Noted patient's lisinopril and furosemide were discontinued in August due to hypotension. In the ED, CXR is consistent with CHF. Troponin is mildly elevated 0.621 and proBNP is elevated. EKG demonstrates sinus tachycardia with new lateral T-wave inversions. Patient was given metoprolol 5mg IV and Lasix 40mg IV. Past Medical/Surgical History Medical Problems: (1) Atrial fibrillation Status: Chronic (2) CVA (cerebral vascular accident) Status: Chronic (3) HTN (hypertension) Status: Chronic (4) Kidney stones Status: Resolved Surgical Problems: (1) H/O inguinal hernia repair Status: Chronic (2) History of embolectomy Permanent Comment: left ICA Status: Chronic (3) Hx of tonsillectomy Status: Chronic Family History non contributory due to patient's advanced age Social History Smoking Status: Never Smoker Alcohol Use: none Immunizations History of Influenza Vaccine: Yes Influenza Vaccine Date: Jan 06, 1998 History of Tetanus Vaccine?: Yes Tetanus Immunization Date: Mar 07, 2012 History of Pneumococcal: Yes Pneumococcal Date: Mar 13, 2015 Multi-Drug Resistant Organisms History of MDRO: No Allergies Coded Allergies: No Known Allergies (Unverified , 06/26/16) Home Medications Scheduled Aspirin (Aspirin Ec), 81 MG PO DAILY Atorvastatin (Lipitor), 40 MG PO QPM Fluticasone Propionate (Nasal) (Flonase Allergy Relief), 2 SPRAYS ANGIE QPM Metoprolol Succ (Toprol Xl) (Toprol-Xl), 25 MG PO DAILY Multivitamins/Minerals (Mvi With Minerals), 1 TAB PO DAILY Warfarin Sod (Jantoven), 6 MG PO 6XWK Warfarin Sod (Jantoven), 3 MG PO Q FRI Scheduled PRN Acetaminophen (Tylenol), 1 TAB PO Q4 PRN for Pain Review of Systems Constitutional- no fever; no weight loss Eyes- no acute visual changes ENT- no sinus drainage; no pharyngitis Pulmonary- (+) NOTED ABOVE Cardiac- (+) NOTED ABOVE GI- no nausea, no vomiting, no diarrhea, no melena, no hematochezia - no dysuria, no hematuria Musculoskeletal- no arthralgias, no myalgias Derm- no rashes, no new skin lesions, no changing skin lesions Hematologic- no unusual bruising, no unusual bleeding Lymphatics- no adenopathy Endocrine- no polyuria or polydipsia; no heat or cold intolerance Neuro- no headaches, no focal neurologic symptoms Psych- no anxiety, no depression Physical Exam Vital Signs Date Time Temp Pulse Resp B/P (MAP) Pulse Ox O2 Delivery O2 Flow Rate FiO2 10/14/16 19:45 103 27 94/64 93 Room Air 10/14/16 19:37 104 10/14/16 18:14 94 Room Air 10/14/16 17:53 94 Room Air 10/14/16 17:50 36.3 109 24 101/64 94 Room Air General Appearance: no apparent distress Head: normocephalic, atraumatic Eyes: normal inspection, sclerae normal ENT: hearing grossly normal Neck: supple, no JVD Respiratory/Chest: no respiratory distress, + decreased breath sounds Cardiovascular: regular rate, rhythm, normal peripheral pulses, + pertinent finding (+1 pitting ankle edema) Abdomen/GI: normal bowel sounds, non tender, soft Extremities/Musculoskelatal: normal inspection, no calf tenderness Neurologic/Psych: alert, oriented x 3, + pertinent finding (mild RLE weakness and mild expressive aphasia - both chronic from prior CVA) Skin: normal color, warm/dry Diagnostics Laboratory Results Results Past 24 Hours Test 10/14/16 19:26 Range/Units White Blood Count 9.05 4.8-10.8 K/uL Red Blood Count 4.77 4.7-6.1 M/uL Hemoglobin 14.0 14.0-18.0 g/dL Hematocrit 43.6 42-52 % Mean Corpuscular Volume 91.4 80-100 fL Mean Corpuscular Hemoglobin 29.4 25-34 pg Mean Corpuscular Hemoglobin Concent 32.1 32-36 g/dl Platelet Count 202 130-400 K/uL Mean Platelet Volume 10.8 7.4-10.4 fL Neutrophils (%) (Auto) 47.9 % Lymphocytes (%) (Auto) 39.1 % Monocytes (%) (Auto) 11.5 % Eosinophils (%) (Auto) 1.1 % Basophils (%) (Auto) 0.3 % Neutrophils # (Auto) 4.33 1.4-6.5 K/uL Lymphocytes # (Auto) 3.54 1.2-3.4 K/uL Monocytes # (Auto) 1.04 0.11-0.59 K/uL Eosinophils # (Auto) 0.10 0-0.5 K/uL Basophils # (Auto) 0.03 0-0.2 K/uL RDW Standard Deviation 57.1 36.4-46.3 fL RDW Coefficient of Variation 16.9 11.5-14.5 % Immature Granulocyte % (Auto) 0.1 % Immature Granulocyte # (Auto) 0.01 0.00-0.02 K/uL Prothrombin Time 32.1 9.0-12.0 SECONDS Prothromb Time International Ratio 2.9 0.9-1.1 Activated Partial Thromboplast Time 33.8 21.0-31.0 SECONDS Partial Thromboplastin Ratio 1.3 Sodium Level 138 136-145 mmol/L Potassium Level 4.7 3.5-5.1 mmol/L Chloride Level 107 98-107 mmol/L Carbon Dioxide Level 21 21-32 mmol/L Anion Gap 10.0 3-11 mmol/L Blood Urea Nitrogen 29 7-18 mg/dl Creatinine 1.30 0.60-1.40 mg/dl Est Creatinine Clear Calc Drug Dose 37.5 ml/min Estimated GFR () 57.7 Estimated GFR (Non- 49.8 BUN/Creatinine Ratio 22.4 10-20 Random Glucose 90 70-99 mg/dl Calcium Level 9.1 8.5-10.1 mg/dl Magnesium Level 1.9 1.8-2.4 mg/dl Total Bilirubin 0.7 0.2-1 mg/dl Aspartate Amino Transf (AST/SGOT) 30 15-37 U/L Alanine Aminotransferase (ALT/SGPT) 26 12-78 U/L Alkaline Phosphatase 90 45-117 U/L Troponin I 0.621 0-0.045 ng/ml Pro-B-Type Natriuretic Peptide 44170 0-1800 pg/ml Total Protein 6.5 6.4-8.2 gm/dl Albumin 3.0 3.4-5.0 gm/dl Globulin 3.5 2.5-4.0 gm/dl Albumin/Globulin Ratio 0.9 0.9-2 Microbiology Results 10/14/16 Blood Culture, Received Pending 10/14/16 Blood Culture, Received Pending Diagnostic Radiology CXR IMPRESSION: Congestive heart failure Impression Assessment and Plan ACUTE CHF - admit to tele - patient presenting with one week of increasing shortness of breath, cough, orthopnea, and lower extremity edema; CXR in the ED consistent with CHF and elevated proBNP - s/p Lasix 40mg IV in the ED - will hold on further diuresis due to borderline BP and reassess in the AM - noted PO furosemide and Lisinopril discontinued in August due to hypotension - echo 06/2016 - EF 55-59%, mild pulmonary HTN - will update echo - daily weights, I/Os, low Na+ diet ELEVATED TROPONIN - likely due to demand ischemia from CHF - no reports of chest pain; EKG shows new T-wave inversions laterally - continue to cycle cardiac enzymes, check resting echo - continue ASA, beta eula, and statin ATRIAL FIBRILLATION - rate controlled on beta eula - on Coumadin, INR 2.8 HX CVA - s/p embolectomy - continue ASA, beta eula, statin, and Coumadin DVT PROPHYLAXIS - on Coumadin CODE STATUS - Patient is a full code as per my discussion with him. DISPO - In my clinical judgment this beneficiary meets acute admission criteria, established by [facility], that includes being hospitalized through two midnights. ATTENDING ADDENDUM care coordinated with RADHA Pineda please refer to her notes for full details, I agree with her notes patient seen and examined, records reviewed by myself as well on exam, patient seen resting in bed comfortable states he feels better compared to when he arrived denies active dyspnea, chest pain, dizziness no other symptoms VS noted and reviewed oriented x 3, not in distress, speaks in sentences with no effort nor accessory muscle use normal rate, regular rhythm, no murmurs mild bibasilar rales non distended, soft, nontender trace lower leg edema, erythema, warmth no neuro deficits BNP 31k INR 2.9 ASSESSMENT/PLAN> CHF - likely new onset - last echo showing moderate aortic stenosis - Lasix IV given BP on the lower side, re-evaluate further Lasix IV in AM - echo ordered A fib - on coumadin other diagnoses and plan of care as per GUIDO Pineda's notes Satish Mendez MD VTE Prophylaxis VTE Risk Assessment Done? Y/N: Yes Risk Level: Moderate Given or contraindicated: Warfarin (Coumadin)
[2016-10-14 22:20] VITALS: BP 100/66; PULSE 99; TEMP 36.5; O2SAT 94; Ht 167.6 cm; Wt 65.3 kg
[2016-10-14] MEDS ORDERED: WARFARIN SOD 3 MG TAB PO SCH (22:30)
[2016-10-15] VITALS (9 sets, daily range): BP systolic 96–107; BP diastolic 52–62; PULSE 89–99; TEMP 36.4–36.9; O2SAT 93–97
[2016-10-15] MEDS: CEROVITE ADV FORMULA TAB PO SCH (07:45)
[2016-10-15] MEDS: ASPIRIN 81 MG ECTAB PO SCH (07:45)
[2016-10-15 07:58] LABS: MEAN CELL VOLUME 90.3 fL (80-100); MEAN CORPUSCULAR HGB CONC 33.3 g/dl (32-36); MEAN PLATELET VOLUME 10.5 fL (7.4-10.4); PLATELET COUNT 169 K/uL (130-400); RED BLOOD COUNT 4.76 M/uL (4.7-6.1); WHITE BLOOD COUNT 8.08 K/uL (4.8-10.8)
[2016-10-15 08:08] LABS: INR 2.4 (0.9-1.1); PROTHROMBIN TIME (PATIENT) 26.4 SECONDS (9.0-12.0)
[2016-10-15 08:46] LABS: BUN/CREATININE RATIO 22.7 (10-20); CALCIUM 9.2 mg/dl (8.5-10.1); CREATININE 1.3 mg/dl (0.60-1.40); POTASSIUM 3.7 mmol/L (3.5-5.1)
[2016-10-15] MEDS ORDERED: METOPROLOL SUCC 25MG EXT REL TAB PO SCH (09:00)
--- NOTE | 2016-10-15 10:21 | ECHOCARDIOGRAM REPORT ---
*NOTICE TO RECEIVING CONSTITUTION PARTY AGENCY This information is strictly Confidential and protected under [place] law. [place] law prohibits you from making any further disclosure of this information unless further disclosure is expressly permitted by the written consent of the person to whom it pertains or is authorized by law. A general authorization for the release of medical or other information is not sufficient for this purpose. Hospital accepts no responsibility if the information is made available to any other person, INCLUDING THE PATIENT. Interpretation Summary * Name: AJIT BERMAN Study Date: 10/15/2016 06:47 AM BP: 97/52 mmHg * Patient Location: C.2T\S\S229\S\2 HR: 94 * : 1930 (M/d/yyy) Gender: Male Height: 66 in * Age: 85 yrs Ethnicity: CA Weight: 149 lb * Ordering Physician: Jennifer Pineda * Referring Physician: Nita Delaney (MEDICAL) * Performed By: Rivera Su RDCS * * Reason For Study: CHF * BSA: 1.8 m2 * -- Conclusions -- * There is moderate concentric left ventricular hypertrophy. * There is a large sized apical, anterior, inferior, posterior, and lateral wall motion abnormality with hypokinesis of the segments. * The inferior wall motion appears worse to a subtle degree compared to the other hypokinetic segments. * The anteroseptal and inferoseptal segments are spared at the mid and basal levels with normal wall motion. * The calculated LV ejection fraction =29% by the Garvin's biplane method (severely impaired). * The left atrium is mildly dilated. * The aortic valve is mildly calcified with mildly reduced systolic excursion, but no significant aortic stenosis is present. * Mild aortic regurgitation. * There is mild tricuspid regurgitation. * Mild to moderate pulmonary hypertension is present. * The PA sytolic pressure is calculated to be 50 mm Hg, assuming a right atrial pressure of 3 mm Hg. * Moderate size left pleural effusion. * There are no prior studies available that were performed at [facility] for direct comparison, however images from the prior study performed at [facility] dated 06/28/16 were reviewed independently and the LV wall motion was normal at that time with LVEF of 55-59% and pulmonary artery systolic pressure of 40 mmHg. Procedure Details * A complete two-dimensional transthoracic echocardiogram was performed (2D, M-mode, Doppler and color flow Doppler). * The study was diagnostic quality. Left Ventricle * The left ventricle is normal in size. * There is moderate concentric left ventricular hypertrophy. * The basal septum is thickened and angulated consistent with sigmoid septum. * Left ventricular systolic function is severely reduced. * The calculated LV ejection fraction =29% by the Garvin's biplane method (severely impaired). * There is a large sized apical, anterior, inferior, posterior, and lateral wall motion abnormality with hypokinesis of the segments. The inferior wall motion appears worse to a suble degree compared to the other hypokinetic segments. The anteroseptal and inferoseptal segments are spared at the mid and basal levels with normal wall motion. Right Ventricle * The right ventricle is normal size. * The right ventricular systolic function is normal as assessed by tricuspid annular plane systolic excursion (TAPSE) (normal >1.5 cm). Atria * The left atrium is mildly dilated. * Right atrial size is normal. * There is no evidence of atrial septal defect, but resolution does not allow assessment for a patent foramen ovale. Mitral Valve * The mitral valve is normal. * There is no mitral valve stenosis. * Significant mitral regurgitation is absent. Tricuspid Valve * The tricuspid valve is normal. * There is no tricuspid stenosis. * There is mild tricuspid regurgitation. * Mild to moderate pulmonary hypertension is present. The PA sytolic pressure is calculated to be 50 mm Hg, assuming a right atrial pressure of 3 mm Hg. Aortic Valve * The aortic valve is trileaflet. * The aortic valve is mildly calcified with mildly reduced systolic excursion, but no significan aortic stenosis is present. * Aortic stenosis is absent. * Mild aortic regurgitation. Pulmonic Valve * The pulmonary valve is not well seen, but the Doppler examination is normal without significant regurgitation or stenosis. Great Vessels * The aortic root and proximal ascending aorta are normal sized. Pericardium/Pleural * There is no pericardial effusion. * Moderate size left pleural effusion. Great Vessels * Normal inferior vena cava diameter and respiratory variation suggests normal central venous pressure. Left Ventricular Diastolic Function * The LV diastolic function is abnormal. MMode 2D Measurements and Calculations IVSd 1.5 cm IVSs 1.7 cm LVIDd 4.4 cm LVIDs 4.1 cm LVPWd 1.3 cm LVPWs 1.3 cm IVS/LVPW 1.1 FS 6.2 % EDV(Teich) 85.4 ml ESV(Teich) 73.5 ml EF(Teich) 14.0 % EDV(cubed) 82.3 ml ESV(cubed) 68.0 ml EF(cubed) 17.4 % % IVS thick 14.9 % % LVPW thick 2.6 % LV mass(C)d 227.5 grams LV mass(C)dI 128.9 grams/m\S\2 LV mass(C)s 237.1 grams LV mass(C)sI 134.3 grams/m\S\2 SV(Teich) 11.9 ml SI(Teich) 6.8 ml/m\S\2 SV(cubed) 14.3 ml SI(cubed) 8.1 ml/m\S\2 EPSS 1.5 cm Ao root diam 3.3 cm Ao root area 8.7 cm\S\2 ACS 0.77 cm LA dimension 4.4 cm asc Aorta Diam 3.6 cm LA/Ao 1.3 LVOT diam 1.9 cm LVOT area 2.9 cm\S\2 LVAd ap4 34.2 cm\S\2 LVLd ap4 8.9 cm EDV(MOD-sp4) 106.0 ml LVAs ap4 27.3 cm\S\2 LVLs ap4 8.3 cm ESV(MOD-sp4) 74.1 ml EF(MOD-sp4) 30.1 % LVAd ap2 36.9 cm\S\2 LVLd ap2 9.8 cm EDV(MOD-sp2) 118.0 ml LVAs ap2 30.8 cm\S\2 LVLs ap2 8.8 cm ESV(MOD-sp2) 86.8 ml EF(MOD-sp2) 26.4 % SV(MOD-sp4) 31.9 ml SI(MOD-sp4) 18.1 ml/m\S\2 SV(MOD-sp2) 31.2 ml SI(MOD-sp2) 17.7 ml/m\S\2 Doppler Measurements and Calculations MV E max reshma 112.6 cm/sec MV dec time 0.14 sec Ao V2 max 160.2 cm/sec Ao max PG 10.3 mmHg Ao max PG (full) 8.4 mmHg Ao V2 mean 113.5 cm/sec Ao mean PG 5.7 mmHg Ao mean PG (full) 4.7 mmHg Ao V2 VTI 26.4 cm VJ(I,A) 1.4 cm\S\2 VJ(I,D) 1.4 cm\S\2 VJ(V,A) 1.2 cm\S\2 VJ(V,D) 1.2 cm\S\2 AI max reshma 265.4 cm/sec AI max PG 28.2 mmHg AI dec slope 276.8 cm/sec\S\2 AI P1/2t 280.8 msec LV V1 max PG 1.8 mmHg LV V1 mean PG 1.0 mmHg LV V1 max 67.4 cm/sec LV V1 mean 46.9 cm/sec LV V1 VTI 12.6 cm SV(Ao) 228.6 ml SI(Ao) 129.5 ml/m\S\2 SV(LVOT) 36.7 ml SI(LVOT) 20.8 ml/m\S\2 PA V2 max 71.7 cm/sec PA max PG 2.1 mmHg PA acc slope 696.9 cm/sec\S\2 PA acc time 0.06 sec PI end-d reshma 98.8 cm/sec TR max reshma 344.2 cm/sec PA pr(Accel) 52.1 mmHg
[2016-10-15] MEDS ORDERED: METOPROLOL TARTRATE 25 MG TAB PO ONE (10:53)
[2016-10-15] MEDS ORDERED: POTASSIUM CHLORIDE 10 MEQ TABCR PO STA (10:55)
[2016-10-15] MEDS ORDERED: SPIRONOLACTONE 25 MG TAB PO ONE (10:55)
[2016-10-15] MEDS ORDERED: DIGOXIN IV 125 MCG in SYRINGE 9.5 ML IV STA (11:22)
--- NOTE | 2016-10-15 11:24 | Cardiology Consultation ---
Cardiology Consultation Date of Consultation: Oct 15, 2016 History of Present Illness Patient is a 85 year old male seen in cardiology consultation per the request of RADHA Gomez for the evaluation of congestive heart failure. The patient has had a complex recent medical history as delineated below. Over the last week, he has been having progressive cough and symptoms of feeling a fullness in his epigastric area. Furosemide 20 mg by mouth daily had recently been discontinued as an outpatient on 10/06/16 due to concerns of relative hypotension. A chest x-ray was subsequent performed as an outpatient on 10/12/16 revealing interstitial edema and bilateral pleural effusions prompted the patient to be referred for admission yesterday. EKG on presentation last evening on 10/14/16 at 1752 revealed sinus tachycardia with first-degree AV block, versus atrial flutter at 112 bpm, with lateral ST segment depression which was new compared to any of his other recent EKG tracings. Chest x-ray repeated in the emergency room was suggestive of congestive heart failure with interstitial edema and small bilateral pleural effusions. Laboratory studies on presentation revealed mildly elevated troponin at 0.6-1 MG per mL, and elevated pro brain nitrate peptide 31,000 inter 54 PG per mL. Emergency room last evening the patient received 40 mg of IV furosemide and 2.5 mg of IV metoprolol with symptomatic relief. His heart rate slowed down some degree and suggestive still of sinus rhythm with long first degree AV block versus atrial flutter, rates on his repeat EKGs from last night and again this morning as well as on telemetry have been in the 90 be per minute range. On interview with the patient, he is comfortable in bed. He still has some trouble with residual dysarthria and expressing his thoughts related to his recent stroke. His had said that since discharge from [place] in June, he had been making good progress with physical and occupational therapy until development of cough and shortness of breath. His cardiac history dates back to June 2016 when he was admitted to the [facility] hospitalist service with 5-6 month complaint of progressive dyspnea. An outpatient echocardiogram and reportedly revealed mild left ventricular systolic dysfunction in the range of 45-50% with global hypokinesis described in the available records and mildly elevated pulmonary pressures. Patient was also noted to have new onset atrial fibrillation with relatively controlled ventricular rate. He was anticoagulated during that hospital stay with heparin and metoprolol succinate 25 mg furosemide 40 mg red, and he was to be discharged on anticoagulation with Xarelto without discharge summary dated . The patient returned to the hospital on 06/26/16 with change in mental status and collapse at home he is found to have right-sided neglect and slurred speech. 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 Because he was anticoagulated with Xarelto he was not a candidate for TPA. 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 [place] [facility] [place] hospital stay on 06/[place]16 with images reviewed independently by the undersigned today revealed normal left ventricular wall motion without segmental wall motion abnormalities, ejection fraction of 5559%. The pulmonary artery systolic pressure is calculated to be 40 mmHg. In moderate aortic regurgitation was reported. After the patient's stroke episode, he was discharged [place] [facility] [place] 06/25[place]16 with discharge medications including amiloride/HCTZ 5/50 mg daily, furosemide 40 mg daily, lisinopril 5 mg daily, metoprolol succinate 25 mg daily, and atorvastatin 40 mg daily. The patient's baseline blood pressure prior to his stroke based on his previous hospital records was in the 110-1 30 mmHg range. However as an outpatient recently his systolic blood pressure has been ranging in the 90-100 mmHg range. Therefore this prompted a de-escalation of his medications and amiloride hydrochlorothiazide was discontinued, lisinopril have been discontinued. Furosemide dose had been reduced from 40 mg to 20 mg before ultimately being discontinued on 10/06/16. The patient has remained on Coumadin which was started several weeks after his stroke as an outpatient. His INR on presentation last night was 2.9 and it is 2.4 today. Past Medical/Surgical History Problem List: Medical Problems: (1) Atrial fibrillation (2) CVA (cerebral vascular accident) (3) HTN (hypertension) (4) Kidney stones Surgical Problems: (1) H/O inguinal hernia repair (2) History of embolectomy- left internal carotid artery stenosis, Jun, [place] [facility] (3) Hx of tonsillectomy History Social History: Patient lives at home with his spouse. He is a non-smoker. Family History: Noncontributory Review Of Systems See above for pertinent positives & negatives. A total of 10 systems reviewed and were otherwise negative. Allergies Coded Allergies: No Known Allergies (Unverified , 06/26/16) Medications Reported Home Medications Medications Dose Route/Sig Max Daily Dose Days Date Category Dose Instructions Tylenol (Acetaminophen) 500 Mg Tab 1 Tab PO Q4 PRN 3 10/14/16 Reported Mvi With Minerals (Multivitamins/Minerals) Tab 1 Tab PO DAILY 10/14/16 Reported Toprol-Xl (Metoprolol Succinate) 25 Mg Tabcr 25 Mg PO DAILY 10/14/16 Reported Aspirin Ec (Aspirin) 81 Mg Tab 81 Mg PO DAILY 10/14/16 Reported Lipitor (Atorvastatin Calcium) 40 Mg Tab 40 Mg PO QPM 10/14/16 Reported Jantoven (Warfarin Sodium) 6 Mg Tab 3 Mg PO Q FRI 10/14/16 Reported Jantoven (Warfarin Sodium) 6 Mg Tab 6 Mg PO 6XWK 10/14/16 Reported take all days except monday take 3 mg Flonase Allergy Relief (Fluticasone Propionate (Nasal)) 50 Mcg/Act Spr 2 Sprays ANGIE QPM 10/14/16 Reported Physical Exam Vital Signs (Last 8hrs): Last 8 Hrs Date Time Temp Pulse Resp B/P (MAP) Pulse Ox O2 Delivery O2 Flow Rate FiO2 10/15/16 08:38 94 96/59 (71) 10/15/16 08:00 94 Nasal Cannula 2.0 10/15/16 07:40 36.4 99 18 107/62 (77) 94 Room Air 10/15/16 04:15 36.9 99 20 97/52 (67) 94 Room Air 2.0 10/15/16 04:00 Room Air General Appearance: Alert and Oriented x3. NAD. Head: Normocephalic Atraumatic. Eyes: PERRLA, EOMI, conjunctiva and sclera clear Neck: Supple. No carotid bruits noted. No JVD. No HJD. Respiratory: Breath sounds decreased bilaterally at the bases Cardiovascular: Reg rate and rhythm. S1 and S2 noted. No murmurs, rubs, gallops. PMI non displace. Abdomen: Mild abdominal distention consistent with fluid retention Extremities: No edema, no clubbing or cyanosis. distal pulses 2/4 bilaterally. Neuro: Mild right upper and right lower extremity weakness, dysarthria noted Data Last Resulted 10/15/16 07:39 Last Resulted 10/15/16 07:39 Past 24 Hours Test 10/14/16 19:26 10/15/16 00:46 10/15/16 07:00 10/15/16 07:39 Range/Units Prothromb Time International Ratio 2.9 H 2.4 H 0.9-1.1 Prothrombin Time 32.1 H 26.4 H 9.0-12.0 SECONDS Troponin I 0.621 *H 0.660 *H 0.774 *H 0-0.045 ng/ml Creatine Kinase MB 6.0 H 5.8 H 0.5-3.6 ng/ml Creatine Kinase MB Ratio 0-3.0 EKG tracings reveal sinus tachycardia first degree AV block, versus atrial flutter, atrial activity is definitely noted, which is new compared to the prior tracings that documented atrial fibrillation. Compared to tracings performed a [facility] and June 2016, as well as a single inpatient EKG performed [place] [facility] on 06/27/16, Are all ST segment changes are noted. [facility] revealed belly by the undersigned * -- Conclusions -- * There is moderate concentric left ventricular hypertrophy. * There is a large sized apical, anterior, inferior, posterior, and lateral wall motion abnormality with hypokinesis of the segments. * The inferior wall motion appears worse to a subtle degree compared to the other hypokinetic segments. * The anteroseptal and inferoseptal segments are spared at the mid and basal levels with normal wall motion. * The calculated LV ejection fraction =29% by the Garvin's biplane method ( severely impaired). * The left atrium is mildly dilated. * The aortic valve is mildly calcified with mildly reduced systolic excursion , but no significan aortic stenosis is present. * Mild aortic regurgitation. * There is mild tricuspid regurgitation. * Mild to moderate pulmonary hypertension is present. * The PA sytolic pressure is calculated to be 50 mm Hg, assuming a right atrial pressure of 3 mm Hg. * Moderate size left pleural effusion. Compared to images reviewed from his prior echocardiogram performed [place] [facility] [place], the wall motion abnormalities are new, and there is been a decline in ejection fraction which was 55-59% at that time. A moderate size pleural effusion is noted on the current echocardiogram study. Assessment & Plan Impression: 85-year-old male 1. Acute decompensation, acute on chronic systolic heart failure, severe LV systolic dysfunction 2. 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 New ischemic EKG changes, lateral ST segment depression, without overt angina 4. Residual right-sided weakness and dysarthria from stroke, the took place June 2016 Discussion/recommendations: The patient had been admitted to [facility] in June 2016 with symptoms suggestive of acute heart failure and newly diagnosed atrial fibrillation. He was treated with diuretic therapy at that time. He was subsequently readmitted with a stroke. And he was discharged on diuretic therapy at that time. However since recovering from his stroke, medication treatment has been limited due to relative hypotension. Ultimately oral furosemide therapy dose was reduced from 40 mg to 20 mg and then completely discontinued. The patient was to receive metoprolol orally this morning, but was held for blood pressure parameter of systolic blood pressure less than 100. At this time , will start back with short acting metoprolol tartrate 12.5 mg twice a day. Given his need for rate control and relative low blood pressure, will start digoxin although his ultimate dose of digoxin will have to be adjusted to keep his chronic kidney insufficiency in mind. Will continue aspirin and Coumadin. I have ordered furosemide, start with 20 mg IV, with caution. Potassium supplementation has been ordered as well as low-dose spironolactone. Patient is to remain on telemetry. There's been a interval decline in his overall left ventricular systolic function compared to June 2016, with wall motion abnormalities and EKG changes suggestive of underlying ischemic heart disease. The patient is 85 years old, frail, and has had a recent stroke. I think he would be at high risk for complication with elective cardiac catheterization, and recommend we proceed with a trial of medical therapy for now. Zhen Chen DO, FACC, FACOI [employer] [facility] [place], [facility]
[2016-10-15] MEDS ORDERED: FUROSEMIDE INJ 20 MG in SYRINGE 0 ML IV ONE (11:30)
[2016-10-15] MEDS: DIGOXIN 0.125 MG TAB PO SCH (16:43)
[2016-10-15] MEDS: WARFARIN SOD 6 MG TAB PO SCH (16:44)
--- NOTE | 2016-10-15 18:48 | Progress Note ---
Internal Med Progress Note Date of Service: Oct 15, 2016. Provider Documentation: SUBJECTIVE: resting comfortably sob is better afebrile no chest pain no nausea thinks patient developing fluid in his abdomen OBJECTIVE: Vital Signs-as noted below Exam: General-alert and oriented. Not in distress ENT-normal hearing Neck-no neck masses Lungs-cta b/l no wheezing mild bibasilar crackles Heart-s1 and s2 heard regular rhythm, no murmurs Abdomen-soft bowel sounds present non tender no distension Extremities mild pedal edema present no erythema Neuro-alert and oriented moves extremities Lab data as noted below. ASSESSMENT & PLAN: ACUTE on chronic systolic CHF presents with one week of increasing shortness of breath, cough, orthopnea, and lower extremity edema; CXR in the ED consistent with CHF and elevated proBNP noted PO furosemide and Lisinopril discontinued in August due to hypotension echo 06/2016 - EF 55-59%, mild pulmonary HTN echo done today shows ef 29% mostly ischemic cardiomyopathy bit no plan for cardiac cath as per cardiology on iv Lasix 20mg daily and Aldactone 12.5mg daily and close monitor as his BP on lower side appreciate cardiology inputs. ELEVATED TROPONIN most likely due to demand ischemia from CHF EKG shows new T-wave inversions laterally on ASA, beta eula, and statin cardiology on board ATRIAL FIBRILLATION rate controlled on beta eula Toprol xl changed to Lopressor as BP on lower side added digoxin on Coumadin, INR 2.4 HX CVA s/p embolectomy on ASA, beta eula, statin, and Coumadin DVT PROPHYLAXIS on Coumadin CODE STATUS Patient is a full code as per h and p. DISPO monitor in tele pt/ot prior to discharge to be determined Vital Signs: Date Time Temp Pulse Resp B/P (MAP) Pulse Ox O2 Delivery O2 Flow Rate FiO2 10/15/16 16:51 36.4 89 18 96/61 (73) 93 Nasal Cannula 2.0 10/15/16 16:43 96 10/15/16 16:00 94 Nasal Cannula 2.0 10/15/16 12:00 94 Nasal Cannula 2.0 10/15/16 11:45 98 10/15/16 11:34 36.4 93 18 97/62 (74) 96 2.0 10/15/16 08:38 94 96/59 (71) 10/15/16 08:00 94 Nasal Cannula 2.0 10/15/16 07:40 36.4 99 18 107/62 (77) 94 Room Air 10/15/16 04:15 36.9 99 20 97/52 (67) 94 Room Air 2.0 10/15/16 04:00 Room Air 10/14/16 22:20 36.5 99 20 100/66 94 Room Air 10/14/16 21:30 91 26 101/63 94 Room Air 10/14/16 21:00 96 29 100/65 99 Room Air 10/14/16 20:30 95 27 106/67 93 Room Air 10/14/16 20:00 94 23 94/64 95 Room Air 10/14/16 19:45 103 27 94/64 93 Room Air 10/14/16 19:37 104 Lab Results: Results Past 24 Hours Test 10/14/16 19:26 10/15/16 00:46 10/15/16 07:00 10/15/16 07:39 Range/Units White Blood Count 9.05 8.08 4.8-10.8 K/uL Red Blood Count 4.77 4.76 4.7-6.1 M/uL Hemoglobin 14.0 14.3 14.0-18.0 g/dL Hematocrit 43.6 43.0 42-52 % Mean Corpuscular Volume 91.4 90.3 80-100 fL Mean Corpuscular Hemoglobin 29.4 30.0 25-34 pg Mean Corpuscular Hemoglobin Concent 32.1 33.3 32-36 g/dl Platelet Count 202 169 130-400 K/uL Mean Platelet Volume 10.8 10.5 7.4-10.4 fL Neutrophils (%) (Auto) 47.9 % Lymphocytes (%) (Auto) 39.1 % Monocytes (%) (Auto) 11.5 % Eosinophils (%) (Auto) 1.1 % Basophils (%) (Auto) 0.3 % Neutrophils # (Auto) 4.33 1.4-6.5 K/uL Lymphocytes # (Auto) 3.54 1.2-3.4 K/uL Monocytes # (Auto) 1.04 0.11-0.59 K/uL Eosinophils # (Auto) 0.10 0-0.5 K/uL Basophils # (Auto) 0.03 0-0.2 K/uL RDW Standard Deviation 57.1 55.9 36.4-46.3 fL RDW Coefficient of Variation 16.9 16.7 11.5-14.5 % Immature Granulocyte % (Auto) 0.1 % Immature Granulocyte # (Auto) 0.01 0.00-0.02 K/uL Prothrombin Time 32.1 26.4 9.0-12.0 SECONDS Prothromb Time International Ratio 2.9 2.4 0.9-1.1 Activated Partial Thromboplast Time 33.8 21.0-31.0 SECONDS Partial Thromboplastin Ratio 1.3 Sodium Level 138 141 136-145 mmol/L Potassium Level 4.7 3.7 3.5-5.1 mmol/L Chloride Level 107 105 98-107 mmol/L Carbon Dioxide Level 21 27 21-32 mmol/L Anion Gap 10.0 9.0 3-11 mmol/L Blood Urea Nitrogen 29 30 7-18 mg/dl Creatinine 1.30 1.30 0.60-1.40 mg/dl Est Creatinine Clear Calc Drug Dose 37.5 37.5 ml/min Estimated GFR () 57.7 57.7 Estimated GFR (Non- 49.8 49.8 BUN/Creatinine Ratio 22.4 22.7 10-20 Random Glucose 90 91 70-99 mg/dl Calcium Level 9.1 9.2 8.5-10.1 mg/dl Magnesium Level 1.9 2.0 1.8-2.4 mg/dl Total Bilirubin 0.7 0.2-1 mg/dl Aspartate Amino Transf (AST/SGOT) 30 15-37 U/L Alanine Aminotransferase (ALT/SGPT) 26 12-78 U/L Alkaline Phosphatase 90 45-117 U/L Troponin I 0.621 0.660 0.774 0-0.045 ng/ml Pro-B-Type Natriuretic Peptide 68632 0-1800 pg/ml Total Protein 6.5 6.4-8.2 gm/dl Albumin 3.0 3.4-5.0 gm/dl Globulin 3.5 2.5-4.0 gm/dl Albumin/Globulin Ratio 0.9 0.9-2 Creatine Kinase MB 6.0 5.8 0.5-3.6 ng/ml Creatine Kinase MB Ratio 0-3.0 Microbiology Results 10/14/16 Blood Culture, Received Pending 10/14/16 Blood Culture, Received Pending
[2016-10-15] MEDS: ATORVASTATIN 20 MG TAB PO SCH (20:08)
[2016-10-15] MEDS: METOPROLOL TARTRATE 25 MG TAB PO SCH (20:08)
[2016-10-16] VITALS (9 sets, daily range): BP systolic 96–112; BP diastolic 63–69; PULSE 84–99; TEMP 36.4–36.9; O2SAT 91–98
[2016-10-16 06:08] LABS: HEMATOCRIT 39.9 % (42-52); MEAN CELL VOLUME 91.9 fL (80-100); MEAN CORPUSCULAR HEMOGLOBIN 30.2 pg (25-34); MEAN CORPUSCULAR HGB CONC 32.8 g/dl (32-36); MEAN PLATELET VOLUME 10.4 fL (7.4-10.4); PLATELET COUNT 164 K/uL (130-400); RED BLOOD COUNT 4.34 M/uL (4.7-6.1); WHITE BLOOD COUNT 9.56 K/uL (4.8-10.8)
[2016-10-16 06:19] LABS: INR 2.8 (0.9-1.1); PROTHROMBIN TIME (PATIENT) 31.5 SECONDS (9.0-12.0)
[2016-10-16 06:53] LABS: BUN/CREATININE RATIO 25.6 (10-20); CALCIUM 8.3 mg/dl (8.5-10.1); CREATININE 1.2 mg/dl (0.60-1.40)
[2016-10-16] MEDS: ASPIRIN 81 MG ECTAB PO SCH (08:09)
[2016-10-16] MEDS: CEROVITE ADV FORMULA TAB PO SCH (08:09)
[2016-10-16] MEDS: SPIRONOLACTONE 25 MG TAB PO SCH (08:09)
[2016-10-16] MEDS: METOPROLOL TARTRATE 25 MG TAB PO SCH ×2 (08:09→19:44)
--- NOTE | 2016-10-16 11:30 | Progress Note ---
Internal Med Progress Note Date of Service: Oct 16, 2016. Provider Documentation: SUBJECTIVE: resting comfortably says ambulating ok denies chest pain or sob afebrile no nausea OBJECTIVE: Vital Signs-as noted below Exam: General-alert and oriented. Not in distress ENT-normal hearing Neck-no neck masses Lungs-cta b/l no wheezing mild bibasilar crackles Heart-s1 and s2 heard regular rhythm, no murmurs Abdomen-soft bowel sounds present non tender no distension Extremities mild pedal edema present no erythema Neuro-alert and oriented moves extremities Lab data as noted below. ASSESSMENT & PLAN: ACUTE on chronic systolic CHF presents with one week of increasing shortness of breath, cough, orthopnea, and lower extremity edema; CXR in the ED consistent with CHF and elevated proBNP noted PO furosemide and Lisinopril discontinued in August due to hypotension echo 06/2016 - EF 55-59%, mild pulmonary HTN echo done today shows ef 29% mostly ischemic cardiomyopathy but no plan for cardiac cath as per cardiology received iv Lasix 20mg yesterday and started on Aldactone 12.5mg daily close monitor as his BP on lower side diuretics as per cardiology appreciate cardiology inputs. ELEVATED TROPONIN most likely due to demand ischemia from CHF EKG shows new T-wave inversions laterally on ASA, beta eula, and statin no plan for cardiac cath as patient is frail and recent stroke cardiology on board ATRIAL FIBRILLATION rate controlled on beta eula Toprol xl changed to Lopressor as BP on lower side added digoxin on Coumadin, INR 2.8 HX CVA s/p embolectomy on ASA, beta eula, statin, and Coumadin DVT PROPHYLAXIS on Coumadin CODE STATUS Patient is a full code as per h and p. DISPO monitor in tele pt/ot prior to discharge to be determined Vital Signs: Date Time Temp Pulse Resp B/P (MAP) Pulse Ox O2 Delivery O2 Flow Rate FiO2 10/16/16 11:26 36.5 99 20 104/63 (77) 94 Room Air 10/16/16 08:00 Nasal Cannula 2.0 10/16/16 07:41 36.4 95 18 103/68 (80) 94 2.0 10/16/16 04:00 Nasal Cannula 2.0 10/16/16 03:09 36.8 94 24 99/67 (78) 94 Nasal Cannula 2.0 10/16/16 00:10 36.8 98 21 100/66 (77) 92 Nasal Cannula 2.0 10/16/16 00:10 Nasal Cannula 2.0 10/15/16 20:00 Nasal Cannula 1.0 10/15/16 19:38 36.7 97 16 97/62 (74) 97 Nasal Cannula 2.0 10/15/16 16:51 36.4 89 18 96/61 (73) 93 Nasal Cannula 2.0 10/15/16 16:43 96 10/15/16 16:00 94 Nasal Cannula 2.0 10/15/16 12:00 94 Nasal Cannula 2.0 10/15/16 11:45 98 10/15/16 11:34 36.4 93 18 97/62 (74) 96 2.0 Lab Results: Results Past 24 Hours Test 10/16/16 05:15 Range/Units White Blood Count 9.56 4.8-10.8 K/uL Red Blood Count 4.34 4.7-6.1 M/uL Hemoglobin 13.1 14.0-18.0 g/dL Hematocrit 39.9 42-52 % Mean Corpuscular Volume 91.9 80-100 fL Mean Corpuscular Hemoglobin 30.2 25-34 pg Mean Corpuscular Hemoglobin Concent 32.8 32-36 g/dl RDW Standard Deviation 55.8 36.4-46.3 fL RDW Coefficient of Variation 16.5 11.5-14.5 % Platelet Count 164 130-400 K/uL Mean Platelet Volume 10.4 7.4-10.4 fL Prothrombin Time 31.5 9.0-12.0 SECONDS Prothromb Time International Ratio 2.8 0.9-1.1 Sodium Level 140 136-145 mmol/L Potassium Level 4.0 3.5-5.1 mmol/L Chloride Level 105 98-107 mmol/L Carbon Dioxide Level 29 21-32 mmol/L Anion Gap 6.0 3-11 mmol/L Blood Urea Nitrogen 31 7-18 mg/dl Creatinine 1.20 0.60-1.40 mg/dl Est Creatinine Clear Calc Drug Dose 40.6 ml/min Estimated GFR () 63.5 Estimated GFR (Non- 54.8 BUN/Creatinine Ratio 25.6 10-20 Random Glucose 94 70-99 mg/dl Calcium Level 8.3 8.5-10.1 mg/dl
[2016-10-16] MEDS ORDERED: DOCUSATE SODIUM/SENNA 50/8.6MG TAB PO ONE (16:00)
[2016-10-16] MEDS: DIGOXIN 0.125 MG TAB PO SCH (16:29)
[2016-10-16] MEDS: WARFARIN SOD 6 MG TAB PO SCH (16:30)
--- NOTE | 2016-10-16 18:35 | Cardiology Follow-Up ---
Subjective General Date of Service: Oct 16, 2016. Chief Complaint: follow-up shortness of breath, newly diagnosed heart myopathy Pt evaluation today including: conversation w/ patient, physical exam History of Present Illness The patient is a 85 year old male was seen in cardiology follow-up today. He is in good spirits. He states that he walked twice with the assistance of nurses, and had no subjective shortness of breath. Sinus rhythm with long first degree AV block is noted on telemetry and EKG. Lateral ST changes noted on this a.m.'s EKG. Allergies Coded Allergies: No Known Allergies (Unverified , 06/26/16) Social History Smoking Status: Never Smoker Hx Tobacco Use In Past Year?: No Hx Alcohol Use - Type And Amou: No Hx Substance Use - Type And Am: No Problem List Medical Problems: (1) Acute ischemic left MCA stroke Status: Acute (2) Acute kidney injury Status: Acute (3) Elevated troponin Status: Acute (4) New onset atrial fibrillation Status: Acute Physical Exam Vital Signs Last Vital Signs Documentation Date Time Temp Pulse Resp B/P (MAP) Pulse Ox O2 Delivery O2 Flow Rate FiO2 10/16/16 16:48 36.5 94 16 110/69 (83) 92 Room Air 10/16/16 08:00 2.0 Physical Exam Constitutional: Level of Distress: NAD ENMT: normal ENT inspection Neck: supple Lungs: Auscultation: no wheezing, no rales/crackles Cardiovascular: Heart Auscultation: RRR, no murmurs Abdomen: Inspection & Palpation: soft, non-distended Neurologic: Gait & Station: pertinent finding (right-sided weakness, mild, mild dysarthria-chronic findings) Assessment and Plan Assessment and Plan Impression: 85-year-old male 1. Acute decompensation, acute on chronic systolic heart failure, severe LV systolic dysfunction, calculated ejection fraction 29%, compared to normal EF on echocardiogram at [facility] [place] in June 2016 2. 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 New ischemic EKG changes, lateral ST segment depression, without overt angina 4. Residual right-sided weakness and dysarthria from stroke, the took place June 2016 Plan: The patient's lisinopril and furosemide had been discontinued due to concerns of hypotension as an outpatient and he had developed progressive shortness of breath. At this point, he is tolerating low-dose metoprolol, digoxin, Aldactone. I have held off on lisinopril due to his low blood pressure. We'll start low-dose furosemide 20 mg every other day tomorrow morning. There is some degree of concern of segmental wall motion abnormality echocardiogram and he has lateral ST changes suggestive of ischemia. The etiology of his cardiomyopathy may be ischemic heart disease, perhaps he has had a silent myocardial infarction sometime between his stroke episode in June and now. Unfortunately, he is 85 years old, and frail, and per the description of him and his spouse, he has finally been eating some steady progress and recovering from his stroke. Other than the shortness of breath he complained about on admission which has resolved, he has no anginal cardiac complaints, and I'm concerned that cardiac catheterization for him would pose significant potential risks including recurrent stroke. I'm hesitant to stop his anticoagulation to allow for the procedure given his recent stroke. I think for the time being it is best to treat him conservatively with medications as if he has an ischemic cardiomyopathy without coronary angiography for now. Fly Chen, DO Laboratory Results Last 24 Hours Test 10/16/16 05:15 White Blood Count 9.56 K/uL Red Blood Count 4.34 M/uL Hemoglobin 13.1 g/dL Hematocrit 39.9 % Mean Corpuscular Volume 91.9 fL Mean Corpuscular Hemoglobin 30.2 pg Mean Corpuscular Hemoglobin Concent 32.8 g/dl RDW Standard Deviation 55.8 fL RDW Coefficient of Variation 16.5 % Platelet Count 164 K/uL Mean Platelet Volume 10.4 fL Prothrombin Time 31.5 SECONDS Prothromb Time International Ratio 2.8 Sodium Level 140 mmol/L Potassium Level 4.0 mmol/L Chloride Level 105 mmol/L Carbon Dioxide Level 29 mmol/L Anion Gap 6.0 mmol/L Blood Urea Nitrogen 31 mg/dl Creatinine 1.20 mg/dl Est Creatinine Clear Calc Drug Dose 40.6 ml/min Estimated GFR () 63.5 Estimated GFR (Non- 54.8 BUN/Creatinine Ratio 25.6 Random Glucose 94 mg/dl Calcium Level 8.3 mg/dl
[2016-10-16] MEDS: ATORVASTATIN 20 MG TAB PO SCH (19:43)
[2016-10-16] MEDS: DOCUSATE SODIUM/SENNA 50/8.6MG TAB PO SCH (19:55)
[2016-10-17] VITALS (8 sets, daily range): BP systolic 97–112; BP diastolic 60–70; PULSE 91–114; TEMP 36.4–36.8; O2SAT 90–95
[2016-10-17] MEDS: ASPIRIN 81 MG ECTAB PO SCH (08:58)
[2016-10-17] MEDS: CEROVITE ADV FORMULA TAB PO SCH (08:58)
[2016-10-17] MEDS: SPIRONOLACTONE 25 MG TAB PO SCH (08:58)
[2016-10-17] MEDS: METOPROLOL TARTRATE 25 MG TAB PO SCH ×2 (08:58→21:25)
[2016-10-17] MEDS ORDERED: FUROSEMIDE 20 MG TAB PO SCH (09:00)
[2016-10-17] MEDS: DOCUSATE SODIUM/SENNA 50/8.6MG TAB PO SCH ×2 (10:05→21:00)
--- NOTE | 2016-10-17 10:50 | Clinical Documentation Query ---
TRIPP Mitchell : CLINICAL DOCUMENTATION QUERY Patient is an 85 year old male admitted for evaluation and treatment of acute on chronic systolic CHF. Estimated GFR range from June 2016 to present of 39-61 ml/min. As appropriate, consider documentation as suggested below accurate DRG assignment may specifically be contingent upon this. Thank you. In your clinical opinion is this patient being managed for: ( ) Chronic kidney disease, stage 3 ( ) Not Agree ( ) Other explanation of clinical findings (Please Explain) ( ) Unable to determine (Please Define) ( ) Need to Discuss The medical record reflects the following clinical findings, treatment, and risk factors. Clinical Indicators: As above Treatment: Serial chemistries Risk Factors: Age, chronic systolic CHF, atrial fibrillation, hypertension, ischemic cardiomyopathy Please clarify and document your clinical opinion in the progress notes and discharge summary. Terms such as "probable", "suspected", "likely", "questionable", "possible", or "still to be ruled out" are acceptable. IF IN AGREEMENT, YOU MUST DOCUMENT ABOVE DIAGNOSTIC STATEMENT IN DAILY PROGRESS NOTES AND DISCHARGE SUMMARY. This document is not part of the patient's record. Thank You, Edvin Dale, RN [phone]
--- NOTE | 2016-10-17 11:23 | PROGRESS NOTE ---
DATE: 10/17/2016 SUBJECTIVE: The patient is an 85-year-old male who was admitted with acute on chronic systolic heart failure. He has evidence of an ischemic cardiomyopathy with perhaps a recent inferior wall myocardial infarction. He presented with paroxysmal atrial fibrillation. The patient had an embolic stroke from his atrial arrhythmias in June 2016 which required a mechanical embolectomy of the left internal carotid artery. He still has dysarthria and right-sided weakness residual. He has no new complaints today. His only ongoing problem is that of hypotension for which most of his medications have been on hold. OBJECTIVE: VITAL SIGNS: Blood pressure is 100/60. Pulse is regular at 90 beats per minute. He is currently in a sinus mechanism. GENERAL: He is alert but has a dysarthria. HEENT: He is normocephalic. Pupils are equal and reactive to light. Extraocular muscles are intact bilaterally. NECK: The neck veins are flat. Carotids have good upstrokes bilaterally without bruits. Thyroid is nonpalpable. RESPIRATORY: Breath sounds equal bilaterally and clear to auscultation. CARDIOVASCULAR: Heart has a regular rhythm. There are no systolic murmurs, no S3. GASTROINTESTINAL: Abdomen is soft, nontender without organomegaly. EXTREMITIES: Free of edema, digit clubbing, or cyanosis. NEUROLOGIC: Grossly intact. SKIN: Warm to touch. LYMPH NODES: Negative to palpation. LABORATORY DATA: Hemoglobin is 13.1. Potassium is 4.0. Creatinine is 1.2. INR is 2.8. IMPRESSION: 1. Acute on chronic systolic heart failure. 2. Ischemic cardiomyopathy. 3. Paroxysmal atrial fibrillation. 4. Embolic stroke with residual right-sided weakness and dysarthria. RECOMMENDATIONS: At this point, the plan is for conservative medical management. No additional cardiac testing is indicated. I would recommend continued adjustment in his medications for his low blood pressure.
[2016-10-17 11:39] LABS: INR 3.3 (0.9-1.1); PROTHROMBIN TIME (PATIENT) 36.7 SECONDS (9.0-12.0)
[2016-10-17] MEDS: WARFARIN SOD 6 MG TAB PO SCH (16:16)
[2016-10-17] MEDS: DIGOXIN 0.125 MG TAB PO SCH (16:16)
--- NOTE | 2016-10-17 18:52 | Progress Note ---
Internal Med Progress Note Date of Service: Oct 17, 2016. Provider Documentation: SUBJECTIVE: resting comfortably no sob afebrile eating ok walking ok want to go home OBJECTIVE: Vital Signs-as noted below Exam: General-alert and oriented. Not in distress ENT-normal hearing Neck-no neck masses Lungs-cta b/l no wheezing mild bibasilar crackles Heart-s1 and s2 heard regular rhythm, no murmurs Abdomen-soft bowel sounds present non tender no distension Extremities mild pedal edema present no erythema Neuro-alert and oriented moves extremities Lab data as noted below. ASSESSMENT & PLAN: ACUTE on chronic systolic CHF presents with one week of increasing shortness of breath, cough, orthopnea, and lower extremity edema; CXR in the ED consistent with CHF and elevated proBNP noted PO furosemide and Lisinopril discontinued in August due to hypotension echo 06/2016 - EF 55-59%, mild pulmonary HTN echo done today shows ef 29% mostly ischemic cardiomyopathy but no plan for cardiac cath as per cardiology received iv Lasix 20mg and was started on Aldactone 12.5mg daily and Lasix 20mg q 2days close monitor as his BP on lower side appreciate cardiology inputs. pt/ot ELEVATED TROPONIN most likely due to demand ischemia from CHF EKG shows new T-wave inversions laterally on ASA, beta eula, and statin no plan for cardiac cath as patient is frail and recent stroke cardiology on board stable ATRIAL FIBRILLATION rate controlled on beta eula Toprol xl changed to Lopressor as BP on lower side added digoxin on Coumadin, INR 3.3 HX CVA s/p embolectomy on ASA, beta eula, statin, and Coumadin CKD stage 3 will f/u labs while on diuretics DVT PROPHYLAXIS on Coumadin CODE STATUS Patient is a full code as per h and p. DISPO monitor in tele pt/ot prior to discharge possible d/c in am Vital Signs: Date Time Temp Pulse Resp B/P (MAP) Pulse Ox O2 Delivery O2 Flow Rate FiO2 10/18/16 04:00 Room Air 10/18/16 03:24 36.7 102 18 103/71 (82) 90 Room Air 10/18/16 00:01 Room Air 10/17/16 23:28 36.7 99 20 97/63 (74) 93 Room Air 10/17/16 20:07 Room Air 10/17/16 19:26 36.8 95 22 106/67 (80) 93 Room Air 10/17/16 16:16 94 10/17/16 16:00 Room Air 10/17/16 15:44 36.5 94 16 98/60 (73) 92 Room Air 10/17/16 12:00 Room Air 10/17/16 11:32 114 92 10/17/16 10:28 36.4 110 18 112/70 (84) 94 Room Air 10/17/16 08:00 Room Air Lab Results: Results Past 24 Hours Test 10/17/16 11:01 10/18/16 07:38 Range/Units Prothrombin Time 36.7 9.0-12.0 SECONDS Prothromb Time International Ratio 3.3 0.9-1.1
[2016-10-17] MEDS: ATORVASTATIN 20 MG TAB PO SCH (21:25)
[2016-10-18 03:24] VITALS: BP 103/71; PULSE 102; TEMP 36.7; O2SAT 90
[2016-10-18 07:49] LABS: BASO % 0.3 %; BASO ABS # 0.03 K/uL (0-0.2); COMPLETE YES; EOS % 1.3 %; IG% 0.3 %; LYMPH % 30.5 %; LYMPH ABS # 2.89 K/uL (1.2-3.4); MEAN CELL VOLUME 89.9 fL (80-100); MEAN CORPUSCULAR HEMOGLOBIN 30.6 pg (25-34); MEAN PLATELET VOLUME 10.3 fL (7.4-10.4); MONO % 12.5 %; NEUT % 55.1 %; PLATELET COUNT 178 K/uL (130-400); RED BLOOD COUNT 4.67 M/uL (4.7-6.1); WHITE BLOOD COUNT 9.46 K/uL (4.8-10.8)
[2016-10-18 08:02] VITALS: BP 109/69; PULSE 101; TEMP 36.5; O2SAT 94
[2016-10-18 08:19] LABS: BUN/CREATININE RATIO 23.5 (10-20); CALCIUM 9.1 mg/dl (8.5-10.1); CREATININE 1.1 mg/dl (0.60-1.40); MAGNESIUM 2.1 mg/dl (1.8-2.4)
[2016-10-18] MEDS: CEROVITE ADV FORMULA TAB PO SCH (08:56)
[2016-10-18] MEDS: SPIRONOLACTONE 25 MG TAB PO SCH (08:56)
[2016-10-18] MEDS: METOPROLOL TARTRATE 25 MG TAB PO SCH (08:56)
[2016-10-18] MEDS: ASPIRIN 81 MG ECTAB PO SCH (08:56)
[2016-10-18] MEDS: DOCUSATE SODIUM/SENNA 50/8.6MG TAB PO SCH (08:56)
[2016-10-18 09:58] LABS: INR 3.5 (0.9-1.1); PROTHROMBIN TIME (PATIENT) 39.5 SECONDS (9.0-12.0)
--- NOTE | 2016-10-18 10:28 | Cardiology Follow-Up ---
Subjective General Date of Service: Oct 18, 2016. Chief Complaint: follow-up shortness of breath, newly diagnosed heart myopathy Pt evaluation today including: conversation w/ patient, physical exam History of Present Illness The patient is a 85 year old male seen in cardiology follow-up. Patient was walking with his walker and felt well. Sinus tachycardia 100 -110 bpm is noted with exertion but is otherwise in the 90 be per minute range. Recent atrial fibrillation is noted. The patient's INR is elevated at 3.5 today. Allergies Coded Allergies: No Known Allergies (Unverified , 06/26/16) Social History Smoking Status: Never Smoker Hx Tobacco Use In Past Year?: No Hx Alcohol Use - Type And Amou: No Hx Substance Use - Type And Am: No Problem List Medical Problems: (1) Acute ischemic left MCA stroke Status: Acute (2) Acute kidney injury Status: Acute (3) Elevated troponin Status: Acute (4) New onset atrial fibrillation Status: Acute Physical Exam Vital Signs Last Vital Signs Documentation Date Time Temp Pulse Resp B/P (MAP) Pulse Ox O2 Delivery O2 Flow Rate FiO2 10/18/16 08:02 36.5 101 20 109/69 (82) 94 Room Air 10/16/16 08:00 2.0 Physical Exam Constitutional: Level of Distress: NAD ENMT: normal ENT inspection Neck: supple Lungs: Auscultation: no wheezing, no rales/crackles Cardiovascular: Heart Auscultation: RRR, no murmurs Abdomen: Inspection & Palpation: soft, non-distended Neurologic: Gait & Station: pertinent finding (right-sided weakness, mild, mild dysarthria-chronic findings) Assessment and Plan Assessment and Plan Impression: 85-year-old male 1. Acute decompensation, acute on chronic systolic heart failure, severe LV systolic dysfunction, calculated ejection fraction 29%, compared to normal EF on echocardiogram at [facility] [place] in June 2016 2. 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 New ischemic EKG changes, lateral ST segment depression, without overt angina 4. Residual right-sided weakness and dysarthria from stroke, the took place June 2016 Plan: The patient's lisinopril and furosemide had been discontinued due to concerns of hypotension as an outpatient and he had developed progressive shortness of breath. At this point, he is tolerating low-dose metoprolol, digoxin, Aldactone , and furosemide. I felt off on lisinopril or angiotensin receptor eula due to relative low blood pressure and her to focus on control of heart rate and volume status. Patient is stable for discharge from a cardiology standpoint as long as we can ensure close follow-up of his INR. His INR is 3??5 today and therefore I have put a hold on his Coumadin. If we hold today's dose and resume him with 3 mg tomorrow and close follow-up with the anticoagulation clinic, that should be sufficient. His blood pressure has been much improved compared to the recent outpatient blood pressure readings. Recommend outpatient follow-up with Dr. Barbosa whom he had seen a little over a month ago. Fly Chen, DO Laboratory Results Last 24 Hours Test 10/17/16 11:01 10/18/16 07:38 10/18/16 09:30 Prothrombin Time 36.7 SECONDS 39.5 SECONDS Prothromb Time International Ratio 3.3 3.5 White Blood Count 9.46 K/uL Red Blood Count 4.67 M/uL Hemoglobin 14.3 g/dL Hematocrit 42.0 % Mean Corpuscular Volume 89.9 fL Mean Corpuscular Hemoglobin 30.6 pg Mean Corpuscular Hemoglobin Concent 34.0 g/dl Platelet Count 178 K/uL Mean Platelet Volume 10.3 fL Neutrophils (%) (Auto) 55.1 % Lymphocytes (%) (Auto) 30.5 % Monocytes (%) (Auto) 12.5 % Eosinophils (%) (Auto) 1.3 % Basophils (%) (Auto) 0.3 % Neutrophils # (Auto) 5.21 K/uL Lymphocytes # (Auto) 2.89 K/uL Monocytes # (Auto) 1.18 K/uL Eosinophils # (Auto) 0.12 K/uL Basophils # (Auto) 0.03 K/uL RDW Standard Deviation 53.9 fL RDW Coefficient of Variation 16.4 % Immature Granulocyte % (Auto) 0.3 % Immature Granulocyte # (Auto) 0.03 K/uL Sodium Level 136 mmol/L Potassium Level 4.0 mmol/L Chloride Level 101 mmol/L Carbon Dioxide Level 26 mmol/L Anion Gap 9.0 mmol/L Blood Urea Nitrogen 26 mg/dl Creatinine 1.10 mg/dl Est Creatinine Clear Calc Drug Dose 44.3 ml/min Estimated GFR () 70.6 Estimated GFR (Non- 60.9 BUN/Creatinine Ratio 23.5 Random Glucose 95 mg/dl Calcium Level 9.1 mg/dl Magnesium Level 2.1 mg/dl
--- NOTE | 2016-10-18 10:58 | Progress Note ---
Internal Med Progress Note Date of Service: Oct 18, 2016. Provider Documentation: SUBJECTIVE: resting comfortably denies sob or any pain afebrile eating ok want to go home OBJECTIVE: Vital Signs-as noted below Exam: General-alert and oriented. Not in distress ENT-normal hearing Neck-no neck masses Lungs-cta b/l no wheezing no crackles Heart-s1 and s2 heard regular rhythm, no murmurs Abdomen-soft bowel sounds present non tender no distension Extremities mild pedal edema present no erythema Neuro-alert and oriented moves extremities Lab data as noted below. ASSESSMENT & PLAN: ACUTE on chronic systolic CHF presents with one week of increasing shortness of breath, cough, orthopnea, and lower extremity edema; CXR in the ED consistent with CHF and elevated proBNP noted PO furosemide and Lisinopril discontinued in August due to hypotension echo 06/2016 - EF 55-59%, mild pulmonary HTN echo done today shows ef 29% mostly ischemic cardiomyopathy but no plan for cardiac cath as per cardiology received iv Lasix 20mg and was started on Aldactone 12.5mg daily and Lasix 20mg q 2days close monitor as his BP on lower side appreciate cardiology inputs. pt/ot stable for discharge ELEVATED TROPONIN most likely due to demand ischemia from CHF EKG shows new T-wave inversions laterally on ASA, beta eula, and statin no plan for cardiac cath as patient is frail and recent stroke cardiology on board stable ATRIAL FIBRILLATION rate controlled on beta eula Toprol xl changed to Lopressor as BP on lower side added digoxin on Coumadin, INR 3.5 will hold coumadin today and resume from tomorrow and close followup with Coumadin clinic HX CVA s/p embolectomy on ASA, beta eula, statin, and Coumadin CKD stage 3 will f/u labs while on diuretics stable DVT PROPHYLAXIS on Coumadin CODE STATUS Patient is a full code as per h and p. DISPO possible d/c today Vital Signs: Date Time Temp Pulse Resp B/P (MAP) Pulse Ox O2 Delivery O2 Flow Rate FiO2 10/18/16 08:02 36.5 101 20 109/69 (82) 94 Room Air 10/18/16 08:00 Room Air 10/18/16 04:00 Room Air 10/18/16 03:24 36.7 102 18 103/71 (82) 90 Room Air 10/18/16 00:01 Room Air 10/17/16 23:28 36.7 99 20 97/63 (74) 93 Room Air 10/17/16 20:07 Room Air 10/17/16 19:26 36.8 95 22 106/67 (80) 93 Room Air 10/17/16 16:16 94 10/17/16 16:00 Room Air 10/17/16 15:44 36.5 94 16 98/60 (73) 92 Room Air 10/17/16 12:00 Room Air 10/17/16 11:32 114 92 Lab Results: Results Past 24 Hours Test 10/17/16 11:01 10/18/16 07:38 10/18/16 09:30 Range/Units Prothrombin Time 36.7 39.5 9.0-12.0 SECONDS Prothromb Time International Ratio 3.3 3.5 0.9-1.1 White Blood Count 9.46 4.8-10.8 K/uL Red Blood Count 4.67 4.7-6.1 M/uL Hemoglobin 14.3 14.0-18.0 g/dL Hematocrit 42.0 42-52 % Mean Corpuscular Volume 89.9 80-100 fL Mean Corpuscular Hemoglobin 30.6 25-34 pg Mean Corpuscular Hemoglobin Concent 34.0 32-36 g/dl Platelet Count 178 130-400 K/uL Mean Platelet Volume 10.3 7.4-10.4 fL Neutrophils (%) (Auto) 55.1 % Lymphocytes (%) (Auto) 30.5 % Monocytes (%) (Auto) 12.5 % Eosinophils (%) (Auto) 1.3 % Basophils (%) (Auto) 0.3 % Neutrophils # (Auto) 5.21 1.4-6.5 K/uL Lymphocytes # (Auto) 2.89 1.2-3.4 K/uL Monocytes # (Auto) 1.18 0.11-0.59 K/uL Eosinophils # (Auto) 0.12 0-0.5 K/uL Basophils # (Auto) 0.03 0-0.2 K/uL RDW Standard Deviation 53.9 36.4-46.3 fL RDW Coefficient of Variation 16.4 11.5-14.5 % Immature Granulocyte % (Auto) 0.3 % Immature Granulocyte # (Auto) 0.03 0.00-0.02 K/uL Sodium Level 136 136-145 mmol/L Potassium Level 4.0 3.5-5.1 mmol/L Chloride Level 101 98-107 mmol/L Carbon Dioxide Level 26 21-32 mmol/L Anion Gap 9.0 3-11 mmol/L Blood Urea Nitrogen 26 7-18 mg/dl Creatinine 1.10 0.60-1.40 mg/dl Est Creatinine Clear Calc Drug Dose 44.3 ml/min Estimated GFR () 70.6 Estimated GFR (Non- 60.9 BUN/Creatinine Ratio 23.5 10-20 Random Glucose 95 70-99 mg/dl Calcium Level 9.1 8.5-10.1 mg/dl Magnesium Level 2.1 1.8-2.4 mg/dl
[2016-10-18 11:54] VITALS: BP 90/59; PULSE 98; TEMP 36.3; O2SAT 92
[2016-10-18] MEDS ORDERED: SPR25 PO (13:31)
[2016-10-18] MEDS ORDERED: LPR25 PO (13:31)
[2016-10-18] MEDS ORDERED: LNX125 PO (13:31)
[2016-10-18] MEDS ORDERED: LSX20 PO (13:31)
--- NOTE | 2016-10-18 13:37 | Discharge Instructions ---
Discharge Instructions Date of Service Oct 18, 2016. Admission Reason for Admission: Congestive Heart Failure Discharge Discharge Diagnosis / Problem: acute systolic chf Discharge Goals Goal(s): Decrease discomfort, Improve function Activity Recommendations Activity Limitations: resume your previous activity . Instructions / Follow-Up Instructions / Follow-Up FOLLOWUP WITH FAMILY DOCTOR ON Oct AT 9:45AM. FOLLOWUP WITH CARDIOLOGY IN 1-2 WEEKS. HOLD COUMADIN TODAY AND TOMORROW AND RESUME COUMADIN PER COUMADIN CLINIC RECOMMENDATIONS ON Monday10/20/16. COUMADIN CLINIC NOTIFIED. LAB: PT/INR ON Monday10/20/16 AND FOLLOW RESULTS WITH COUMADIN CLINIC. LAB: BMP IN ONE WEEK AND FOLLOW RESULTS WITH FAMILY DOCTOR STARTED ON LASIX AND ALDACTONE. NEW MEDICATION: DIGOXIN 0.125MG PO DAILY LASIX 20MG PO EVERY OTHER DAY ALDACTONE 12.5MG PO DAILY. CHANGED TOPROL XL ( METOPROLOL SUCCINATE) TO LOPRESSOR (METOPROLOL TARTRATE) 12.5MG PO TWICE DAILY. Call your Primary Care doctor if any of the following symptoms or problems start or get worse: * Shortness of breath or difficulty breathing * Wake up at night short of breath * Chest pain * Cough * Swelling of your hands, feet, or legs * More fatigued or tired with your normal activity * Palpitations - sudden fast heart beats WEIGHT * Weigh yourself every morning after using the bathroom. * Use the same scale. * Wear the same amount of clothing. * Write your weight down on a chart. * Call your Primary Care doctor if you gain more than 2-3 pounds in 1-2 days. MEDICATIONS * Use this discharge instruction sheet for medication instructions. * Take your medications at the time your doctor ordered. * Do not skip a dose of your medicines. * If you miss a dose of medicine, take it as soon as possible, but DO NOT DOUBLE A DOSE. * Read your medicine information when you get home. * Know all of the side effects of your medicine. If in doubt, ask your pharmacist * Call your Primary Care doctor's office if you have any side effects. * Be sure all of your doctors know what medicine and herbs you take (including cold, flu, and herbal medicine). Take the following with you to your follow-up doctor appointments: * Weight Chart * Medication List * List of questions Do not drink excessive alcohol, beer or wine. Current Hospital Diet Patient's current hospital diet: AHA Diet (Heart Healthy), Low Sodium Diet (2gm Na) Discharge Diet Recommended Diet: AHA Diet (Heart Healthy), Low Sodium Diet (2gm Na) Pending Studies Studies pending at discharge: no Medical Emergencies . Who to Call and When: Call 911 or go to the Emergency Room if: * If at any time you feel your situation is an emergency * You have tightness or pain in your chest that does not go away with rest or Nitroglycerin * You are very short of breath even with rest . Non-Emergent Contact Non-Emergency issues call your: Primary Care Provider . . "Provider Documentation" section prepared by Levi Carter. . VTE Core Measure Inpt VTE Proph given/why not?: Warfarin (Coumadin)
[2016-10-18 13:45] VITALS: BP 90/59; PULSE 98; TEMP 36.3; O2SAT 92
--- NOTE | 2016-10-18 17:38 | Discharge Summary ---
Discharge Summary Date of Service Oct 18, 2016. Discharge Summary Admission Date: Oct 14, 2016 at 21:20 Discharge Date: Oct 18, 2016 Discharge Disposition: Home with services Principal Diagnosis: ACUTE SYSTOLIC CHF Secondary Diagnoses/Problems: (1) Atrial fibrillation Status: Chronic (2) CVA (cerebral vascular accident) Status: Chronic (3) HTN (hypertension) Status: Chronic (4) Kidney stones Status: Resolved Procedures: CXR: Congestive heart failure ECHO: There is moderate concentric left ventricular hypertrophy. * There is a large sized apical, anterior, inferior, posterior, and lateral wall motion abnormality with hypokinesis of the segments. * The inferior wall motion appears worse to a subtle degree compared to the other hypokinetic segments. * The anteroseptal and inferoseptal segments are spared at the mid and basal levels with normal wall motion. * The calculated LV ejection fraction =29% by the Garvin's biplane method ( severely impaired). * The left atrium is mildly dilated. * The aortic valve is mildly calcified with mildly reduced systolic excursion , but no significant aortic stenosis is present. * Mild aortic regurgitation. * There is mild tricuspid regurgitation. * Mild to moderate pulmonary hypertension is present. * The PA sytolic pressure is calculated to be 50 mm Hg, assuming a right atrial pressure of 3 mm Hg. * Moderate size left pleural effusion. * There are no prior studies available that were performed at [facility] for direct comparison, however images from the prior study performed at [facility] dated 06/28/16 were reviewed independently and the LV wall motion was normal at that time with LVEF of 55-59% and pulmonary artery systolic pressure of 40 mmHg. Consultations: CARDIOLOGY Medication Reconciliation New Medications: Digoxin (Digoxin) 0.125 Mg Tab 0.125 MG PO DAILY@16, #30 TAB 2 Refills Furosemide (Furosemide) 20 Mg Tab 20 MG PO Q2D@0900, #30 TAB 2 Refills Metoprolol Tartrate (Lopressor) 25 Mg Tab 12.5 MG PO BID, #30 TAB 1 Refill Spironolactone (Spironolactone) 25 Mg Tab 12.5 MG PO QAM, #30 TAB 2 Refills Continued Medications: Acetaminophen (Tylenol) 500 Mg Tab 1 TAB PO Q4 PRN for Pain for 3 Days, #10 TAB Aspirin (Aspirin Ec) 81 Mg Tab 81 MG PO DAILY Atorvastatin (Lipitor) 40 Mg Tab 40 MG PO QPM, TAB Fluticasone Propionate (Nasal) (Flonase Allergy Relief) 50 Mcg/Act Spr 2 SPRAYS ANGIE QPM Multivitamins/Minerals (Mvi With Minerals) Tab 1 TAB PO DAILY, TAB Warfarin Sod (Jantoven) 6 Mg Tab 6 MG PO 6XWK, TAB take all days except monday take 3 mg Warfarin Sod (Jantoven) 6 Mg Tab 3 MG PO Q FRI, TAB Discontinued Medications: Metoprolol Succ (Toprol Xl) (Toprol-Xl) 25 Mg Tabcr 25 MG PO DAILY, #30 TAB Admission Information HPI (per Admitting provider): 85 year old male who presents to the ER with cough and shortness of breath. Symptoms have been going on for about one week. Patient was seen by his PCP a couple of days ago. CXR was obtained that showed mild CHF. Patient was referred to the ED for further evaluation. Patient reports cough has been non productive. No fever or chills. He notes orthopnea and has been using an extra pillow to sleep. Mild lower extremity edema. He denies chest pain and palpitations. No lightheadedness, dizziness, diaphoresis, or syncopal events. 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 No new unilateral weakness, numbness, or tingling. He denies abdominal pain, nausea, vomiting, and diarrhea. No urinary symptoms. Noted patient's lisinopril and furosemide were discontinued in August due to hypotension. In the ED, CXR is consistent with CHF. Troponin is mildly elevated 0.621 and proBNP is elevated. EKG demonstrates sinus tachycardia with new lateral T-wave inversions. Patient was given metoprolol 5mg IV and Lasix 40mg IV. Physical Exam (per Admitting): General Appearance: no apparent distress Head: normocephalic, atraumatic Eyes: normal inspection, sclerae normal ENT: hearing grossly normal Neck: supple, no JVD Respiratory/Chest: no respiratory distress, + decreased breath sounds Cardiovascular: regular rate, rhythm, normal peripheral pulses, + pertinent finding (+1 pitting ankle edema) Abdomen/GI: normal bowel sounds, non tender, soft Extremities/Musculoskelatal: normal inspection, no calf tenderness Neurologic/Psych: alert, oriented x 3, + pertinent finding (mild RLE weakness and mild expressive aphasia - both chronic from prior CVA) Skin: normal color, warm/dry Hospital Course ACUTE on chronic systolic CHF presents with one week of increasing shortness of breath, cough, orthopnea, and lower extremity edema; CXR in the ED consistent with CHF and elevated proBNP noted PO furosemide and Lisinopril discontinued in August due to hypotension echo 06/2016 - EF 55-59%, mild pulmonary HTN echo done today shows ef 29% mostly ischemic cardiomyopathy but no plan for cardiac cath as per cardiology received iv Lasix 20mg and was started on Aldactone 12.5mg daily and Lasix 20mg q 2days close monitor as his BP on lower side appreciate cardiology inputs. pt/ot stable for discharge ELEVATED TROPONIN most likely due to demand ischemia from CHF EKG shows new T-wave inversions laterally on ASA, beta eula, and statin no plan for cardiac cath as patient is frail and recent stroke cardiology on board stable ATRIAL FIBRILLATION rate controlled on beta eula Toprol xl changed to Lopressor as BP on lower side added digoxin on Coumadin, INR 3.5 will hold Coumadin today and tomorrow and PT?INR on based on results recommendation as per Coumadin clinic. Coumadin clinic notified HX CVA s/p embolectomy on ASA, beta eula, statin, and Coumadin CKD stage 3 will f/u labs while on diuretics stable DVT PROPHYLAXIS on Coumadin CODE STATUS Patient is a full code as per h and p. DISPO DISCHARGED HOME WITH HOME HEALTH Total time spent on discharge = 35MINUTES This includes examination of the patient, discharge planning, medication reconciliation, and communication with other providers. Discharge Instructions Discharge Instructions Date of Service Oct 18, 2016. Admission Reason for Admission: Congestive Heart Failure Discharge Discharge Diagnosis / Problem: acute systolic chf Discharge Goals Goal(s): Decrease discomfort, Improve function Activity Recommendations Activity Limitations: resume your previous activity . Instructions / Follow-Up Instructions / Follow-Up FOLLOWUP WITH FAMILY DOCTOR ON Oct AT 9:45AM. FOLLOWUP WITH CARDIOLOGY IN 1-2 WEEKS. HOLD COUMADIN TODAY AND TOMORROW AND RESUME COUMADIN PER COUMADIN CLINIC RECOMMENDATIONS ON Monday10/20/16. COUMADIN CLINIC NOTIFIED. LAB: PT/INR ON Monday10/20/16 AND FOLLOW RESULTS WITH COUMADIN CLINIC. LAB: BMP IN ONE WEEK AND FOLLOW RESULTS WITH FAMILY DOCTOR STARTED ON LASIX AND ALDACTONE. NEW MEDICATION: DIGOXIN 0.125MG PO DAILY LASIX 20MG PO EVERY OTHER DAY ALDACTONE 12.5MG PO DAILY. CHANGED TOPROL XL ( METOPROLOL SUCCINATE) TO LOPRESSOR (METOPROLOL TARTRATE) 12.5MG PO TWICE DAILY. Call your Primary Care doctor if any of the following symptoms or problems start or get worse: * Shortness of breath or difficulty breathing * Wake up at night short of breath * Chest pain * Cough * Swelling of your hands, feet, or legs * More fatigued or tired with your normal activity * Palpitations - sudden fast heart beats WEIGHT * Weigh yourself every morning after using the bathroom. * Use the same scale. * Wear the same amount of clothing. * Write your weight down on a chart. * Call your Primary Care doctor if you gain more than 2-3 pounds in 1-2 days. MEDICATIONS * Use this discharge instruction sheet for medication instructions. * Take your medications at the time your doctor ordered. * Do not skip a dose of your medicines. * If you miss a dose of medicine, take it as soon as possible, but DO NOT DOUBLE A DOSE. * Read your medicine information when you get home. * Know all of the side effects of your medicine. If in doubt, ask your pharmacist * Call your Primary Care doctor's office if you have any side effects. * Be sure all of your doctors know what medicine and herbs you take (including cold, flu, and herbal medicine). Take the following with you to your follow-up doctor appointments: * Weight Chart * Medication List * List of questions Do not drink excessive alcohol, beer or wine. Current Hospital Diet Patient's current hospital diet: AHA Diet (Heart Healthy), Low Sodium Diet (2gm Na) Discharge Diet Recommended Diet: AHA Diet (Heart Healthy), Low Sodium Diet (2gm Na) Pending Studies Studies pending at discharge: no Medical Emergencies . Who to Call and When: Call 911 or go to the Emergency Room if: * If at any time you feel your situation is an emergency * You have tightness or pain in your chest that does not go away with rest or Nitroglycerin * You are very short of breath even with rest . Non-Emergent Contact Non-Emergency issues call your: Primary Care Provider . . "Provider Documentation" section prepared by Levi Crater. . VTE Core Measure Inpt VTE Proph given/why not?: Warfarin (Coumadin)
== END 2016-10-18 14:21 | disposition home health service (06) | DRG 291 ==
LOC: C.EDB 17:41 → C.2T 21:20 → ENRESERV 21:47
PROVIDERS: ADMIT Internal Medicine; ATTEND Internal Medicine
DX: I13.0 Hypertensive heart and chronic kidney disease with heart failure and stage 1 through stage 4 chronic kidney disease, or unspecified chronic kidney disease (principal); I50.23 Acute on chronic systolic (congestive) heart failure; I24.8 Other forms of acute ischemic heart disease; I69.951 Hemiplegia and hemiparesis following unspecified cerebrovascular disease affecting right dominant side; N17.9 Acute kidney failure, unspecified; I48.0 Paroxysmal atrial fibrillation; R00.0 Tachycardia, unspecified; Z79.01 Long term (current) use of anticoagulants; I27.2 Other secondary pulmonary hypertension; N18.3 Chronic kidney disease, stage 3 (moderate); I69.922 Dysarthria following unspecified cerebrovascular disease; Z86.73 Personal history of transient ischemic attack (TIA), and cerebral infarction without residual deficits; I25.2 Old myocardial infarction

== ENCOUNTER 2016-11-16 12:04 | Emergency (ER) | payer OTHER ==
[~2016-11-16 12:04] MED LIST changes: +ACET-1256 PO; -ASPEC81 PO; +ASPI81TA28 PO; +ATOR-24 PO; +FLUT0.15 NAE; -FRS/40 PO; +LNX125 PO; +LPR25 PO; -LSN5 PO; +LSX20 PO; +MULT-513 PO; -RIVAROXABAN PO; +SPR25 PO; -TPRSR25 PO; +WARF6TAB5 PO; -XRL15 PO
== END 2016-11-16 14:13 | disposition expired ==
LOC: C.EDA 12:04 → EDBD 12:04 → C.EDA 14:13
DX: I46.9 Cardiac arrest, cause unspecified (principal)